=== PATIENT | female | born 1975 | race Caucasian/White ===

== ENCOUNTER 2017-07-11 20:02 | Inpatient (IN) | payer BC ==
[~2017-07-11] VITALS: Ht 180.3 cm; Wt 103.6 kg
[~2017-07-11 20:02] MED LIST: ACET325T9 PO; ALPR1TAB2 PO; HYDR-2678 PO; METR500T PO; NITR100C PO; Nicotine TD; TRAZ-90 PO
[2017-07-11 21:08] LABS: BASO # 0.1 x10^3/uL (0.0-0.2); BASO % 1 % (0-3); EOS # 0.2 x10^3/uL (0.0-0.7); EOS % 2 % (0-3); HEMATOCRIT 39.8 % (36.0-47.0); HEMOGLOBIN 13.4 g/dL (12.0-15.5); LYMPH # 3.2 x10^3/uL (1.0-4.8); LYMPH % 39 % (24-48); MEAN CORPUSCULAR HEMOGLOBIN 34 pg (25-35); MEAN CORPUSCULAR HGB CONC 34 g/dL (31-37); MEAN CORPUSCULAR VOLUME 99 fL (79-100); MONO # 0.6 x10^3/uL (0.0-1.1); MONO % 7 % (0-9); NEUT # 4.2 x10^3uL (1.8-7.7); NEUT % 51 % (31-73); PLATELET COUNT 197 x10^3/uL (140-400); RED BLOOD COUNT 4.01 x10^6/uL (3.50-5.40); RED CELL DISTRIBUTION WIDTH 12.9 % (11.5-14.5); WHITE BLOOD COUNT 8.3 x10^3/uL (4.0-11.0)
[2017-07-11 21:14] LABS: ALBUMIN 2.9 g/dL (3.4-5.0); CALCIUM 7.8 mg/dL (8.5-10.1); CREATININE 1.3 mg/dL (0.6-1.0); GFR 45.1; MAGNESIUM 1.8 mg/dL (1.8-2.4); POTASSIUM 3.8 mmol/L (3.5-5.1); TOTAL BILIRUBIN 0.1 mg/dL (0.2-1.0); TOTAL PROTEIN 5.8 g/dL (6.4-8.2)
[2017-07-11 21:16] LABS: ETHANOL 141 mg/dL (0-10)
[2017-07-11 21:20] LABS: ACETAMIN 10.7 mcg/mL (10-30)
[2017-07-11] MEDS ORDERED: IV NORMAL SALINE 1,000ML 1,000 ML IV ONE (21:30)
[2017-07-11 21:35] LABS: BACTERIA,URINE 0 /HPF (0-FEW); BILIRUBIN,URINE NEG (NEG); CLARITY,URINE CLEAR; COLOR,URINE COLORLESS; GLUCOSE,URINE NEG (NEG); NITRITE,URINE NEG (NEG); RBC,URINE RARE /HPF (0-2); SQUAMOUS EPITHELIAL CELL,UR MANY /LPF; UROBILINOGEN,URINE 0.2 mg/dL (0.2 mg/dL); WBC,URINE RARE /HPF (0-4)
[2017-07-11 21:38] LABS: AMPHETAMINE/METHAMPHETAMINE NEG (NEG); BARBITURATES NEG (NEG); BENZODIAZEPINES POS (NEG); CANNABINOIDS NEG (NEG); COCAINE NEG (NEG); METHADONE NEG (NEG); OPIATES NEG (NEG); PHENCYCLIDINE NEG (NEG)
[2017-07-11 21:39] LABS: U PREG PATIENT NEGATIVE (NEG)
--- NOTE | 2017-07-11 21:59 | EKG ---
[address] [address] Test Date: 2017-07-11 Test Time: 20:19:10 Pat Name: CARLOS KUHN Department: Room: Gender: F Sales Appointment Coordinator: : 1975 Requested By: MIK ACEVES Order Number: [id number] Reading MD: Measurements Intervals [place] Rate: 97 P: 38 MN: 130 QRS: 63 QRSD: 78 T: 17 QT: 372 QTc: 477 Interpretive Statements SINUS RHYTHM INCOMPLETE RIGHT BUNDLE BRANCH BLOCK PROLONGED QT RI6.01 Unconfirmed report No previous ECG available for comparison
[2017-07-11 23:15] VITALS: BP 136/76
--- NOTE | 2017-07-11 23:15 | NUR ---
Grecia Kearns a 42 y/o female was admitted to ICU-2, Dr Hernandez's service, dx overdose (Xanax, trazadone, latuda, paxil), etoh, suicidal ideation. Pt has not been interactive with ER staff at all, will not talk with ER dr or nurses. Tele psych was not able to be completed. Pt was admitted to ICU for monitoring. and will haven psych consult in AM. After EMS brought pt to ICU, pt was awake and was talking a little to me and was tearful. She was not very talkative for admission questionaire to be fully completed. Will monitor pt accordingly to protocols.
--- NOTE | 2017-07-11 23:17 | PHYS DOC ---
Past History Past Medical History: Bipolar, Depression, Renal Disease Past Surgical History: Hysterectomy, Other Alcohol Use: Occasionally Drug Use: Marijuana Adult General Chief Complaint Chief Complaint: OVERDOSE HPI HPI Patient is a 42 year old F who presents with intentional overdose. Grecia's history was limited by clinical condition. She is arousable and states that she took 30-40 trazodone, 3 Xanax, and drank "a lot" of alcohol. She states that she did not take her Lutuda during this episode. Her intent was to kill herself. This is not her first attempt. Review of Systems Review of Systems Constitutional: Denies fever or chills [] Eyes: Denies change in visual acuity, redness, or eye pain [] HENT: Denies nasal congestion or sore throat [] Respiratory: Denies cough or shortness of breath [] Cardiovascular: No additional information not addressed in HPI [] GI: Denies abdominal pain, nausea, vomiting, bloody stools or diarrhea [] : Denies dysuria or hematuria [] Musculoskeletal: Denies back pain or joint pain [] Integument: Denies rash or skin lesions [] Neurologic: Denies headache, focal weakness or sensory changes [] Endocrine: Denies polyuria or polydipsia [] Review of systems was obtained but is limited by her clinical condition Family History Family History Noncontributory Current Medications Current Medications Current Medications Medications (Trade) Dose Ordered Sig/Dustin Start Time Stop Time Status Last Admin Dose Admin Sodium Chloride 1,000 ml @ 1,000 mls/hr 1X ONCE 07/11/17 21:30 07/11/17 22:29 DC 07/11/17 21:15 1,000 MLS/HR Allergies Allergies Allergies Coded Allergies Type Severity Reaction Last Updated Verified No Known Drug Allergies 05/10/15 No Physical Exam Physical Exam Constitutional: Well developed, well nourished, lethargic but arousable to verbal stimuli HENT: Normocephalic, atraumatic, bilateral external ears normal, oropharynx moist, no oral exudates, nose normal. [] Eyes: EOMI, conjunctiva normal, no discharge. [] Neck: Normal range of motion, no tenderness, supple, no stridor. [] Cardiovascular:Heart rate regular rhythm, initially tachycardic Lungs & Thorax: Bilateral breath sounds clear to auscultation [] Abdomen: Bowel sounds normal, soft, no tenderness, no masses, no pulsatile masses. [] Skin: Warm, dry, no erythema, no rash. [] Extremities: no edema. Moves all extremities equally Neurologic: Arousable to verbal stimulus. no focal deficits noted. [] GCS: 12 Eye response: 3 Spontaneously (+4) To verbal command (+3) To pain (+2) No eye opening (+1) Verbal response: 4 Oriented (+5) Confused (+4) Inappropriate words (+3) Incomprehensible sounds (+2) No Verbal response (+1) Motor response: 5 Obeys commands (+6) Localizes pain (+5) Withdrawal from pain (+4) Flexion to pain (+3) Extension to pain (+2) No motor response (+1) Psychologic: Intoxicated Current Patient Data Vital Signs Vital Signs Date Time Temp Pulse Resp B/P (MAP) Pulse Ox O2 Delivery O2 Flow Rate FiO2 07/11/17 22:13 77 16 92 07/11/17 21:00 97.9 07/11/17 20:02 Room Air Lab Results Laboratory Tests Test 07/11/17 20:15 07/11/17 20:42 Urine Collection Type U cath Urine Color Colorless Urine Clarity Clear Urine pH 5.5 Urine Specific Tram <=1.005 Urine Protein Neg (NEG-TRACE) Urine Glucose (UA) Neg mg/dL (NEG) Urine Ketones (Stick) Neg mg/dL (NEG) Urine Blood Small (NEG) Urine Nitrite Neg (NEG) Urine Bilirubin Neg (NEG) Urine Urobilinogen Dipstick 0.2 mg/dL (0.2 mg/dL) Urine Leukocyte Esterase Neg (NEG) Urine RBC Rare /HPF (0-2) Urine WBC Rare /HPF (0-4) Urine Squamous Epithelial Cells Many /LPF Urine Bacteria 0 /HPF (0-FEW) Urine Test Negative (NEG) White Blood Count 8.3 x10^3/uL (4.0-11.0) Red Blood Count 4.01 x10^6/uL (3.50-5.40) Hemoglobin 13.4 g/dL (12.0-15.5) Hematocrit 39.8 % (36.0-47.0) Mean Corpuscular Volume 99 fL (79-100) Mean Corpuscular Hemoglobin 34 pg (25-35) Mean Corpuscular Hemoglobin Concent 34 g/dL (31-37) Red Cell Distribution Width 12.9 % (11.5-14.5) Platelet Count 197 x10^3/uL (140-400) Neutrophils (%) (Auto) 51 % (31-73) Lymphocytes (%) (Auto) 39 % (24-48) Monocytes (%) (Auto) 7 % (0-9) Eosinophils (%) (Auto) 2 % (0-3) Basophils (%) (Auto) 1 % (0-3) Neutrophils # (Auto) 4.2 x10^3uL (1.8-7.7) Lymphocytes # (Auto) 3.2 x10^3/uL (1.0-4.8) Monocytes # (Auto) 0.6 x10^3/uL (0.0-1.1) Eosinophils # (Auto) 0.2 x10^3/uL (0.0-0.7) Basophils # (Auto) 0.1 x10^3/uL (0.0-0.2) Sodium Level 140 mmol/L (136-145) Potassium Level 3.8 mmol/L (3.5-5.1) Chloride Level 107 mmol/L (98-107) Carbon Dioxide Level 24 mmol/L (21-32) Anion Gap 9 (6-14) Blood Urea Nitrogen 11 mg/dL (7-20) Creatinine 1.3 mg/dL (0.6-1.0) H Estimated GFR (Cockcroft-Gault) 45.1 BUN/Creatinine Ratio 8 (6-20) Glucose Level 91 mg/dL (70-99) Calcium Level 7.8 mg/dL (8.5-10.1) L Magnesium Level 1.8 mg/dL (1.8-2.4) Total Bilirubin 0.1 mg/dL (0.2-1.0) L Aspartate Amino Transferase (AST) 15 U/L (15-37) Alanine Aminotransferase (ALT) 17 U/L (14-59) Alkaline Phosphatase 55 U/L (46-116) Total Protein 5.8 g/dL (6.4-8.2) L Albumin 2.9 g/dL (3.4-5.0) L Albumin/Globulin Ratio 1.0 (1.0-1.7) Urine Opiates Screen Neg (NEG) Urine Methadone Screen Neg (NEG) Acetaminophen Level 10.7 mcg/mL (10-30) Acetaminophen Last Dose Date 07/11/17 Acetaminophen Last Dose Time Unknown Urine Barbiturates Neg (NEG) Urine Phencyclidine Screen Neg (NEG) Urine Amphetamine/Methamphetamine Neg (NEG) Urine Benzodiazepines Screen Pos (NEG) Urine Cocaine Screen Neg (NEG) Urine Cannabinoids Screen Neg (NEG) Ethyl Alcohol Level 141 mg/dL (0-10) H Urine Ethyl Alcohol Pos (NEG) EKG EKG Interpreted by emergency department physician Rhythm: Sinus Rate: 114 Ectopy: none ST Segments: No changes T Waves: up right Clinical Impression: sinus tachycardia Course & Med Decision Making Course & Med Decision Making Pertinent Labs and Imaging studies reviewed. (See chart for details) Grecia did receive IV fluids during her stay in the ER. She was monitored closely and transferred to the ICU in stable condition. Dragon Disclaimer Dragon Disclaimer This chart was dictated in whole or in part using Voice Recognition software in a busy, high-work load, and often noisy Emergency Department environment. It may contain unintended and wholly unrecognized errors or omissions. Departure Departure: Impression: Primary Impression: ETOH abuse Additional Impressions: Suicidal overdose Polysubstance overdose Disposition: ADMITTED INPATIENT Condition: GUARDED Referrals: BRENDAN LYONS (PCP) Problem Qualifiers Additional Impressions: Suicidal overdose Encounter type: initial encounter Qualified Codes: T50.902A - Poisoning by unspecified drugs, medicaments and biological substances, intentional self-harm , initial encounter Polysubstance overdose Encounter type: initial encounter Injury intent: intentional self-harm Qualified Codes: T50.902A - Poisoning by unspecified drugs, medicaments and biological substances, intentional self-harm, initial encounter MIK ACEVES MD Jul 11, 2017 23:16
[2017-07-12] VITALS (9 sets, daily range): BP systolic 93–131; BP diastolic 49–74
[2017-07-12] MEDS ORDERED: IV NORMAL SALINE 1,000ML 1,000 ML IV SCH (01:35)
[2017-07-12] MEDS ORDERED: ONDANSETRON PF 4 MG/2 ML VIAL. IV PRN (01:45)
--- NOTE | 2017-07-12 02:15 | NUR ---
poison control, [place] was called to be advised of pt's overdose of trazadone 4 grams and xanax, paxil, latuda and alcohol. Per poison control pt is at high risk for respiratory arrest, bradycardia, torsades, severe hypotension. Poison control requests the following orders: tylenol level to be rechecked now, EKG every 4 hours x3, if QRS >100ms to give sodium bicarb 2-3 amps IVP and recheck EKG 15 mins later; if QTc >500, infuse 1-2 grams Magnesium Sulfate and recheckk EKG 15 mins after infusion. In case of severe hypotension, in spite of IVF, use norepinepipherine drip. [facility] in case they are needed. Poison control will call back later this morning to check status update on patient. If there are any changes in patient or any questions we are to contact them at .
[2017-07-12] MEDS ORDERED: NOREPINEPHRINE BITARTRATE 8 MG in IV NORMAL SALINE 250ML 250 ML IV PRN (03:00)
[2017-07-12] MEDS ORDERED: SODIUM BICARB ADULT 8.4% 50 MEQ/50 ML DISP.SYRIN. IV ONE (03:30)
[2017-07-12] MEDS ORDERED: MAGNESIUM SULFATE 2GM 50 ML IV ONE (03:30)
[2017-07-12 03:58] LABS: ACETAMIN 3.6 mcg/mL (10-30)
[2017-07-12 06:21] LABS: CALCIUM 7.5 mg/dL (8.5-10.1); CREATININE 1.2 mg/dL (0.6-1.0); GFR 49.5; MAGNESIUM 1.8 mg/dL (1.8-2.4); POTASSIUM 4.5 mmol/L (3.5-5.1)
[2017-07-12 06:54] LABS: BASO # 0.1 x10^3/uL (0.0-0.2); BASO % 1 % (0-3); EOS # 0.1 x10^3/uL (0.0-0.7); EOS % 2 % (0-3); HEMATOCRIT 39.3 % (36.0-47.0); HEMOGLOBIN 13.3 g/dL (12.0-15.5); LYMPH # 2.1 x10^3/uL (1.0-4.8); LYMPH % 32 % (24-48); MEAN CORPUSCULAR HEMOGLOBIN 34 pg (25-35); MEAN CORPUSCULAR HGB CONC 34 g/dL (31-37); MEAN CORPUSCULAR VOLUME 100 fL (79-100); MONO # 0.4 x10^3/uL (0.0-1.1); MONO % 7 % (0-9); NEUT # 3.9 x10^3uL (1.8-7.7); NEUT % 59 % (31-73); PLATELET COUNT 196 x10^3/uL (140-400); RED BLOOD COUNT 3.95 x10^6/uL (3.50-5.40); RED CELL DISTRIBUTION WIDTH 12.9 % (11.5-14.5); WHITE BLOOD COUNT 6.6 x10^3/uL (4.0-11.0)
[2017-07-12] MEDS ORDERED: SODIUM BICARB ADULT 8.4% 50 MEQ/50 ML DISP.SYRIN. IV PRN (08:00)
[2017-07-12] MEDS ORDERED: MAGNESIUM SULFATE 2GM 50 ML IV PRN (08:00)
[2017-07-12] MEDS ORDERED: PARO20TA3 PO (08:26)
[2017-07-12] MEDS ORDERED: LURA80TA PO (08:26)
--- NOTE | 2017-07-12 08:31 | NUR ---
Pt assessed and VS per flowsheet. Pt in NSR per monitor. Pt awake this am; currently at bedside with pt. Pt ate a regular breakfast with no complaints of nausea. Pt denies SI this am; when asked if she wanted to pursue treatment of any kind, she shook her head no and stated she needed to find a job. Pt asked to be unhooked to 'go get some fresh air'. Explained to pt that she was 1:1 supervision and I would have to go with her and I could not leave the unit. Also informed pt that she was not allowed to go outside to smoke, that this was a smoke free campus and she was not allowed to leave campus. Pt then asked what she needed to do to be released and when the doctor would be here. Called and spoke with embedded case manager who is coming to unit to speak with pt to go over options. Pt verbalized understanding and agreed to wait and talk with embedded case manager. Will continue to monitor closely.
--- NOTE | 2017-07-12 12:34 | NUR ---
Pt has remained cooperative with cares so far this shift. Screener from [facility] is in with pt now. Pt has voided twice, both times needed min assist to toilet due to weakness and unsteady gait. Pt resting most of the morning. Pt's brought up pt's phone and visited with her for a while. Pt did state after he left that they were getting a divorce. Will continue to monitor.
[2017-07-12] MEDS: LORazepam 1 MG TABLET PO PRN ×2 (15:18→22:18)
[2017-07-12] MEDS: NICOTINE 21MG PATCH. TD SCH (15:18)
--- NOTE | 2017-07-12 16:08 | NUR ---
Pt's came to visit earlier and brought pt's purse. Pt and then attempted to go outside to smoke. Told pt again that she was not allowed to go outside and smoke and if she did I would call security and have her brought back in. Pt then said that she would just smoke in her room. Told pt that she was not allowed to smoke in her room and if she lit the cigarette I would call security; I also asked her to take the senior enlisted advisor from pt and take it home. Pt was very upset, stated she was very anxious and didn't understand what was going on with the transfer process. Explained process to be accepted to [facility] to pt and ; Dr. Hernandez here to see pt and gave order for nicotine patch and lorazepam. Pt verbalized understanding of plan. Pt currently eating a box lunch at this time.
--- NOTE | 2017-07-12 20:25 | NUR ---
Nursing Note At 1899, Dr. España called this nursing station and informed this nurse that this pt had followed him outside after his consultation with this pt. This nurse searched for pt and found pt outside of the old ER entrance smoking a cigarette. This nurse confronted the pt and the pt stated that "she needed a cigarette bad." This nurse and the nursing logging supervisor stood outside with the pt while she put out her cigarette and walked the pt back to her room. At 1999, this nurse was called into pt's room and the pt requested to go outside to smoke another cigarette. This nurse informed the pt that she could not do that, especially that she was unsteady currently and involuntarily held. Pt disagreed and called "someone to take her out to smoke." This nurse called the nursing logging supervisor and after research, there was question whether or not she was involuntarily held. This nurse called Dr. Hernandez at 2019 and asked if she was involuntary hold, Dr. Hernandez could not answer. The nursing logging supervisor then called Linda Rivas RN to confirm whether or not the pt was involuntarily held and this resulted in the pt not being involuntarily held legally, this was just a recommendation. This nurse and the nursing logging supervisor informed the pt of this at 2034 and the pt requested to leave. Informed pt of the risks of leaving, pt still requesting to leave and is currently calling a family member to pick the pt up. Addendum: 07/12/17 at 2121 by CELIA MORA RN Pt informed this nurse that she can not find a ride home, so she will be staying here for the night. Pt tried to bargain multiple times to let this nurse allow her to "take a stroll... (sage cazares) and go smoke a cigarette." This nurse informed the pt that she is not allowed to do that on our property and if she leaves the property we will have to inform security that she has left. Pt physically upset, but agrees that she will stay inside and not smoke on our property. The pt stated that she "will not be placed at any facility that does not allow her to smoke including [facility]." This nurse then called [facility] to check on placement status at 2100, [facility] informed this nurse that she is still being triaged because [facility] has not faxed over all the papers required. This nurse informed [facility] that the pt did not want to placed there and the facility informed this nurse that we should call [facility] to inform them. Will call [facility]. Will CTM the pt closely.
[2017-07-12] MEDS ORDERED: PARoxetine 20 MG TABLET PO SCH (22:00)
[2017-07-12] MEDS ORDERED: LURASIDONE 40 MG TABLET. PO SCH (22:00)
--- NOTE | 2017-07-13 01:01 | ACF ---
Admission Criteria Forms DRUG INGESTION OR OVERDOSE Clinical Indications for Admission to Inpatient Care ( [place]/check or initial the applicable condition/criteria) Admission is indicated for severe toxicity as indicated by 1 or more of the following(1)(2)(3) )(4)(5)(6) I. Hemodynamic instability. II. Dangerous arrhythmia III. Respiratory abnormalities IV. Hypertension requiring inpatient treatment V. Specific finding indicating severe and likely prolonged or drug toxicity [X]. Inpatient admission required rather than observation care (See Drug Ingestion or Overdose: Observation Care guideline as appropriate) because1 or more of the following(9)(10) a) Altered mental status that is severe or persistent b) Clinical finding(e.g., metabolic acidosis, hypoglycemia, bradycardia) that is severe or persistent(11) c) Toxic drug level that is persistent or necessitates ongoing treatment ( e.g. acetaminophen overdose) d) Recurrent seizures [X] e) Psychiatric risk status not acceptable for outpatient management f) Continuous intravenous infusion of anticoagulation, platelet inhibitor, vasoactive,or antiarrhythmic medication(12)(13) g) Other condition, treatment or monitoring requiring inpatient admission Extended stay beyond goal length of stay may be needed for (4) (24) a) Neurologic or respiratory compromise(15)(25) b) Hemodynamic instability c) Persistent toxic drug levels (26) d) Severe drug toxicities or complications(5)(27)(28) e) Ongoing antidote treatment(e.g., acetaminophen overdose) (11)(23)(29)(29)(30) (31) f) Older patient The original [employer] content created by [employer] has been revised. The portions of the content which have been revised are identified through the use of italic text or in bold, and [facility] has neither reviewed nor approved the modified material. All other unmodified content is copyright [employer]. Please see references footnoted in the original [facility] edition 2017 Admission Criteria Met?: Yes MAYURI BARROS Jul 13, 2017 01:01
--- NOTE | 2017-07-13 02:47 | PN ---
DATE: 07/12/2017 SUBJECTIVE: The patient was admitted yesterday with an overdose of trazodone, Xanax and access lots of alcohol to attempt to kill herself. This is not her first attempt and apparently has had multiple stressors in her life including losing her father who committed suicide. She is in the process of divorce. She lost her job and also her house for closure, and basically was admitted. Initial evaluation showed that her toxic screen was positive for benzodiazepine as well as alcohol. Her Tylenol was slightly elevated, although still within therapeutic range. When I saw her today, she was resting slightly propped up in bed, in no apparent respiratory distress; however, she is extremely anxious. According to nursing staff, she wants to smoke, but denied any other complaint. PHYSICAL EXAMINATION: GENERAL: When I examined her, she looked well. There is no pallor, jaundice, cyanosis, or thyromegaly. No jugular venous distension. No lower limb edema. VITAL SIGNS: His heart rate was 86, blood pressure 119/63, temperature was 97, respiratory rate was 21 and oxygen saturation was 95% on room air. The rest of clinical examination is unremarkable, has not really changed. Her intake was 1100, output was 1550. LABORATORY DATA: Showed a white cell count of 6600, hemoglobin 13.3, hematocrit 39, MCV 100, and platelet count of 296,000. Her chemistry showed that her serum sodium 142, potassium 4.5, chloride 110, bicarbonate 25, anion gap of 7, BUN 11, creatinine 1.2, estimated GFR was 49 mL per minute. Her glucose was 84, calcium was 7.5, magnesium was 1.8. ASSESSMENT: Suicidal overdose, polysubstance overdose, depression, bipolar disorder. The patient was [facility] and she accepted at [facility]. We are awaiting for the transfer. JOANN ZARAGOZA MD DR: ALEX/kasey JOB#: [id number] / [id number]
--- NOTE | 2017-07-13 05:19 | HP ---
ADMIT DATE: 07/12/2017 HISTORY OF PRESENT ILLNESS: The patient is a 42-year-old female patient who presented to the Emergency Room with intentional overdose. She apparently took around 30-40 trazodone, three Xanax, and drank a lot of alcohol. She stated that she did not take her Latuda during this episode. Her intent was to kill herself. It is not her first attempt. She stated that she lost her , father, her job, and her house to [facility] in the span of six months. PAST MEDICAL HISTORY: Significant for bipolar disorder, depression. She has also chronic kidney disease. Apparently, she has what seemed to be vesicoureteral reflux disease. PAST SURGICAL HISTORY: Significant for left nephrectomy, abdominal hysterectomy, appendectomy, and cholecystectomy. ALLERGIES: She has no known drug allergies. MEDICATIONS: She is currently on following medications: Tylenol 650 mg every 6 hours, alprazolam 1 mg 4 times a day, lurasidone (Latuda) 80 mg once a day, paroxetine 20 mg daily and trazodone 100 mg at bedtime for sleep. FAMILY HISTORY: Significant for the fact that her father committed suicide about 6 months ago. SOCIAL HISTORY: She is in the process of divorce. She has two daughters and one son. She is a smoker, smokes a pack a day. She normally drinks alcohol and apparently, she lost her job recently. REVIEW OF SYSTEMS: As per history of present illness. PHYSICAL EXAMINATION: GENERAL: On arrival to the Emergency Room, the patient looked well and was clearly in no apparent respiratory distress. No pallor, jaundice, cyanosis or thyromegaly. No jugular venous distension. No lower limb edema. VITAL SIGNS: Her heart rate was 111, blood pressure was 136/76, temperature was 97.3, respiratory rate was 18, and oxygen saturation was 96%. HEENT: Showed normocephalic, atraumatic. NECK: Supple. HEART: Showed normal first and second heart sounds. No gallop, rub or murmur. CHEST: Clear to auscultation. No crepitation or rhonchi. ABDOMEN: Distended, soft and nontender. NEUROLOGIC: She is awake, alert, responding appropriately, although she was somewhat lethargic, intoxicated. Her Sarah coma scale was about 12. LABORATORY DATA: While in the Emergency Room, she has had lab work done, which showed a white cell count of 8300, hemoglobin 13.4, hematocrit 39.8, MCV 99, and platelet count of 197,000 with normal manual differential. Her chemistry showed a serum sodium 140, potassium 3.8, chloride 107, bicarbonate 24, anion gap 9, BUN 11, creatinine 1.3, estimated GFR was 45 mL per minute. Her glucose was 91, calcium was 7.8, magnesium was 1.8. Total bilirubin, AST, ALT, alkaline phosphatase were normal. Her total protein was 5.8, albumin 2.9. Her prothrombin time was 10.2, INR 1, APTT was 21. Urinalysis showed urine was clear, colorless with a pH of 5.5 with specific gravity of 1.005. The urine was negative for protein, glucose, ketones, small amount of blood, negative for nitrite, and leukocyte esterase. There are no rbc's, rare wbc's, and no bacteria. Her urine test was negative. Urine toxic screen was positive for alcohol with a blood alcohol level of 141 mg/dL. She is also positive for benzodiazepine but negative for cannabinoids, cocaine, amphetamine, methamphetamine, phencyclidine, and barbiturate as well as opiate and methadone. Her Tylenol level was 10.7. IMPRESSION: In summary, this is a 42-year-old female patient who was admitted for another suicidal attempt at this time by taking about 30-40 tablets of trazodone, 3 tablets of Xanax, and she drank a lot of alcohol with intent to basically kill herself and this is within the context of multiple stressors including fact that she lost her father who basically committed suicide. Her left her. She lost her job and according to her, she lost her house also to [employer]. The patient is known to have depression and bipolar disorder as well as chronic kidney disease secondary to vesicoureteral reflux. She has had left-sided nephrectomy. Her lab work showed elevated serum creatinine. She has also protein-calorie malnutrition. PLAN: The patient was admitted to the ICU. The screener from the [facility] came and screened her and she has been accepted at ____ waiting her to be transferred there. JOANN ZARAGOZA MD DR: ALEX/kasey JOB#: [id number] / [id number]
[2017-07-13 06:07] LABS: CALCIUM 7.4 mg/dL (8.5-10.1); CREATININE 1.3 mg/dL (0.6-1.0); GFR 45.1
[2017-07-13 06:10] LABS: BASO % 1 % (0-3); EOS # 0.2 x10^3/uL (0.0-0.7); EOS % 2 % (0-3); HEMATOCRIT 39.9 % (36.0-47.0); HEMOGLOBIN 13.2 g/dL (12.0-15.5); LYMPH # 3.1 x10^3/uL (1.0-4.8); LYMPH % 36 % (24-48); MEAN CORPUSCULAR HEMOGLOBIN 33 pg (25-35); MEAN CORPUSCULAR HGB CONC 33 g/dL (31-37); MEAN CORPUSCULAR VOLUME 100 fL (79-100); MONO # 0.6 x10^3/uL (0.0-1.1); MONO % 6 % (0-9); NEUT # 4.8 x10^3uL (1.8-7.7); NEUT % 56 % (31-73); PLATELET COUNT 188 x10^3/uL (140-400); RED BLOOD COUNT 3.99 x10^6/uL (3.50-5.40); WHITE BLOOD COUNT 8.7 x10^3/uL (4.0-11.0)
--- NOTE | 2017-07-13 06:42 | NUR ---
Nursing Note No other events occured during this shift other than event that is noted. Pt rested throughout the night peacefully without any complaints.
[2017-07-13] MEDS: NICOTINE 21MG PATCH. TD SCH (10:49)
[2017-07-13 12:11] VITALS: BP 123/67
--- NOTE | 2017-07-13 12:21 | EKG ---
[address] [address] Test Date: 2017-07-12 Test Time: 01:27:38 Pat Name: CARLOS KUHN Department: Room: [facility]02 1 Gender: F Copy Worker: : 1975 Requested By: JOANN ZARAGOZA Order Number: [id number] Reading MD: Measurements Intervals [place] Rate: P: MO: QRS: QRSD: T: QT: QTc: Interpretive Statements
--- NOTE | 2017-07-13 12:22 | EKG ---
[address] [address] Test Date: 2017-07-12 Test Time: 05:15:55 Pat Name: CARLOS KUHN Department: Room: [facility]02 1 Gender: F Parts Designer: : 1975 Requested By: JOANN ZARAGOZA Order Number: [id number] Reading MD: Measurements Intervals [place] Rate: P: [place]: QRS: QRSD: T: QT: QTc: Interpretive Statements
--- NOTE | 2017-07-13 12:27 | EKG ---
[facility] [address] [place] [address] Test Date: 2017-07-12 Test Time: 08:46:15 Pat Name: CARLOS KUHN Department: Room: [facility]02 1 Gender: F Circulation Clerk: : 1975 Requested By: JOANN ZARAGOZA Order Number: [id number] Reading MD: Measurements Intervals [place] Rate: P: NM: QRS: QRSD: T: QT: QTc: Interpretive Statements
[2017-07-13] MEDS: LORazepam 1 MG TABLET PO PRN (12:42)
--- NOTE | 2017-07-13 14:16 | CONS ---
DATE OF CONSULTATION: 07/12/2017 This is a late entry for 07/12/2017. The patient was seen for this evaluation on the evening of 07/12/2017. IDENTIFYING DATA: The patient is a 42-year-old female seen in bed ____ [facility] for a psychiatric consult requested by Dr. Hernandez on account of the patient's admission following overdose on trazodone, Xanax, Paxil, Latuda and alcohol. The patient had made suicidal statements and then attempted the overdose to end her life. Reportedly, she had been postings ____ on social media for about 1 week regarding her suicidal ideation. She has had significant stressors recently including separation from her , lost of employment, of her father, all within the past 1 year, complicating her bipolar disorder symptoms, which have been worsening. CHIEF COMPLAINT: "I have been going to [facility] for treatment of my bipolar disorder. I have been seeing Inocencia. I have been through a lot of stress. I have been crying. I thought I would be better of ." HISTORY OF PRESENT ILLNESS: The patient has a long history of bipolar disorder. Recently, stressors have been insignificant including the of her father, separation from her , losing her job and her home. She presented to the Emergency Room with an intentional overdose after taking about 30-40 trazodone, 3 Xanax, and excessive amount of alcohol. Reportedly, she had taken Latuda, but this is not confirmed. She states her intent was to kill herself and this is not her first attempt. She has had sleep and appetite changes. She does have a long history of bipolar disorder diagnosed when she was 19 years old and most recently treated at the [facility]. The patient was screened by the screeners from the [facility] and apparently arrangements have been made for her transfer to [facility] for psychiatric stabilization. PAST PSYCHIATRIC HISTORY: As noted above. PAST MEDICAL HISTORY: Chronic kidney disease, vesicoureteral reflux disease. PAST SURGICAL HISTORY: Positive for left nephrectomy, abdominal hysterectomy, appendectomy, cholecystectomy. DRUG ALLERGIES: Negative. CURRENT PSYCHOTROPICS AT THE TIME OF ADMISSION: Tylenol 650 q.6 hours p.r.n., Xanax 1 mg 4 times a day, Latuda 80 mg once a day, paroxetine 20 mg a day, and trazodone 100 mg at bedtime. FAMILY HISTORY: Father committed suicide about 6 months ago. SOCIAL HISTORY: The patient is from her of 13 years. She has 1 biological child from this relationship who was 12-year-old daughter and has a 17-year-old daughter and a 21-year-old son. She is a smoker, smokes a pack a day. 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 REVIEW OF SYSTEMS: Positive for some tiredness, anxiety, restlessness, racing thoughts. She is quite tearful, sad, depressed as I met with her. Denied active suicidal ideation, however. MENTAL STATUS EXAMINATION: VITAL SIGNS: Pulse 86, respirations 21, BP 119/63, O2 sats 95% on room air. The patient is reasonably oriented. I met with her in her room in the evening of 07/12/2017. She is depressed, tearful, well oriented, gave me a very reliable history. She said when she attempted suicide, she thought everyone would be better off without her. Denies active suicidal ideation. Speech is coherent. Thought processes goal directed. Mood and affect are depressed and affect is mood congruent. Attention span short. Language function intact. No homicidal ideation. No clear psychotic symptoms. LABORATORY DATA: Reviewed. IMPRESSION: Bipolar 1 disorder, mixed with significant suicide attempt; anxiety disorder, unspecified; history of alcohol abuse; impulse control disorder, unspecified. Rest as above. PLAN: I have carefully reviewed the patient's past psychiatric history, it appears she has never been treated on lithium, even though she has had a confirmed diagnosis of bipolar disorder since she was 19 years old. Reportedly, she had been transferred to the [facility] and decision on appropriate psychotropic medication intervention will be made as part of that evaluation. For the time being, we maintained her on her current psychotropics, observe her closely per nursing staff. Increase the Latuda to 100 mg at night and defer the addition of a mood stabilizer to when she is transferred to [facility]. Dr. Hernandez, thank you for the opportunity to participate in your patient's care. We will follow with you. RONI HAMMOND MD DR: REESE/kasey JOB#: [id number] / [id number]
--- NOTE | 2017-07-13 15:01 | NUR ---
Transfer to [facility] via cart accompanied by emt staff. Alert and oriented, no c/o pain or distress, vs stable. Pt voices need for help. Sl dc'ed, tolerated procedure well. Report called to Roberth at [facility], verbalized understanding.
[2017-07-13] MEDS ORDERED: LURASIDONE 40 MG TABLET. PO SCH ×2 (21:00)
[2017-07-13] MEDS ORDERED: PARoxetine 20 MG TABLET PO SCH (21:00)
--- NOTE | 2017-07-14 03:10 | PN ---
DATE: 07/13/2017 SUBJECTIVE: The patient is resting, slightly propped up in bed, no apparent distress. Awake, alert, denied any complaint except that she wants to smoke and she has had a Nicoderm patch. PHYSICAL EXAMINATION: GENERAL: When I examined her, she looked well and was clearly in no apparent respiratory distress. No pallor, jaundice, cyanosis, or thyromegaly. No jugular venous distension. No lower limb edema. VITAL SIGNS: Her heart rate was 85, blood pressure 123/67, temperature was 98.4, respiratory rate was 14, and oxygen saturation was 97%. The rest of clinical exam is unremarkable, has not really changed. Her intake over the last 24 hours was 1100, output was 1550. LABORATORY DATA: Her lab work this morning showed a white cell count of 8700, hemoglobin 13, hematocrit 39, MCV 100, and platelet count of 188,000. Serum sodium was 139, potassium 4, chloride 107, bicarbonate 26, anion gap of 6, BUN 13, creatinine 1.3, estimated GFR was 45 mL per minute. Her glucose was 99. Calcium was 7.4. ASSESSMENT AND PLAN: Suicidal overdose, polysubstance overdose, depression, bipolar disorder, apparently without the court order, patient cannot be transferred to ____ [facility]. We are contacting other inpatient psychiatric clinic to be discharged there if accepted. JOANN ZARAGOZA MD DR: ALEX/kasey JOB#: [id number] / [id number]
== END 2017-07-13 15:01 | DRG 918 ==
LOC: ER 20:02 → ICU 21:35 → 1 SOUTH 07-12 16:28
PROVIDERS: ADMIT Internal Medicine; ATTEND Internal Medicine
DX: T43.212A Poisoning by selective serotonin and norepinephrine reuptake inhibitors, intentional self-harm, initial encounter (principal); E46 Unspecified protein-calorie malnutrition; F31.60 Bipolar disorder, current episode mixed, unspecified; N13.70 Vesicoureteral-reflux, unspecified; F10.10 Alcohol abuse, uncomplicated; F17.210 Nicotine dependence, cigarettes, uncomplicated; F41.9 Anxiety disorder, unspecified; N18.9 Chronic kidney disease, unspecified; F63.9 Impulse disorder, unspecified; F12.90 Cannabis use, unspecified, uncomplicated; Z90.710 Acquired absence of both cervix and uterus; Z90.49 Acquired absence of other specified parts of digestive tract; Z90.5 Acquired absence of kidney; Z79.899 Other long term (current) drug therapy; Z68.31 Body mass index [BMI] 31.0-31.9, adult; Z56.0 Unemployment, unspecified; Y92.89 Other specified places as the place of occurrence of the external cause
CPT/HCPCS: 36415; 80048; 80053; 80307; 81001; 81025; 83735; 85025; 85610; 85730; 87641; 93005; 96360; 96361; G0480; J2405; 99285-25; G0479; J7030

== ENCOUNTER 2017-12-22 19:49 | Inpatient (IN) | payer BC ==
[~2017-12-22] VITALS: Ht 180.3 cm; Wt 103.4 kg
[~2017-12-22 19:49] MED LIST changes: +LURA80TA PO; +PARO20TA3 PO
--- NOTE | 2017-12-22 19:51 | ED.ADGEN ---
Past History Past Medical History: Bipolar, Depression, Renal Disease Past Surgical History: Hysterectomy, Other Alcohol Use: Occasionally Drug Use: Marijuana Adult General Chief Complaint Chief Complaint " I was trying to kill my self... I took all my Xanax at home ... it was about a handful.. and cut my right wrist... I did not want to mess up my tattoo on the Lt wrist..... I just don't want to live anymore" " I was on the parking lot when I cut my wrist.. because I did not want anyone to find me right away .. or find me at home.. I cut my wrist about hour ago... but I didn't bleed out.. and I got really cold...my arm hurt too bad.. and I guess started having second thoughts.... so I came in... " HPI HPI Patient is a 42 year old female who presents with above hx and complaints depression, suicidal ideation, and 8 cm laceration to right wrist. Patient has a past history of depression, and her depression recently exacerbated by loss of custody of her children secondary chronic alcohol abuse, loss of home, and loss of part-time job. Pt. has hx chronic alcohol abuse and some remote hx of alcohol withdrawal seizure. Pt. has been taking low dose Paxil and Xanax by her primary. Pt. has previous suicide attempt with drug over dose . Pt. cut her wrist on parking lot because she felt she would not be discovered until she bled out. Pt. has deep 8 cm laceration that does whitney a flexor tendon. No demonstrable function loss or neuro deficits. Wound did begin to bleed actively during irrigation, ROM and sensory checks. Pt. Does not remember her last Tetanus. Review of Systems Review of Systems Pt. somewhat poor historian. Constitutional: Denies fever or chills [] Eyes: Denies change in visual acuity, redness, or eye pain [] HENT: Denies nasal congestion or sore throat [] Respiratory: Denies cough or shortness of breath [] Cardiovascular: No additional information not addressed in HPI [] GI: Denies abdominal pain, nausea, vomiting, bloody stools or diarrhea [] : Denies dysuria or hematuria [] Musculoskeletal: Denies back pain or joint pain [] Integument: Denies rash or skin lesions [] Neurologic: Denies headache, focal weakness or sensory changes [] Endocrine: Denies polyuria or polydipsia [] All other systems were reviewed and found to be within normal limits, except as documented in this note. Family History Family History Non-contributory Current Medications Current Medications Current Medications Medications (Trade) Dose Ordered Sig/Dustin Start Time Stop Time Status Last Admin Dose Admin Bupivacaine HCl (Sensorcaine Mpf 0.5%) 30 ml 1X ONCE 12/22/17 20:45 12/22/17 20:46 DC Ceftriaxone Sodium 1 gm/ Sodium Chloride 50 ml @ 100 mls/hr 1X ONCE 12/22/17 21:45 12/22/17 22:14 DC 12/22/17 23:05 100 MLS/HR Ceftriaxone Sodium (Rocephin) 1 gm STK-MED ONCE 12/22/17 22:48 12/22/17 22:49 DC Diphtheria/ Tetanus/Acell Pertussis (Boostrix) 0.5 ml ONCE ONCE 12/22/17 21:00 12/22/17 21:01 DC 12/22/17 21:01 0.5 ML Lidocaine HCl 20 ml 1X ONCE 12/22/17 20:45 12/22/17 20:46 DC Magnesium Hydroxide (Milk Of Magnesia) 2,400 mg 1X ONCE 12/22/17 21:45 12/22/17 21:46 DC 12/22/17 23:04 2,400 MG Potassium Chloride (KCl Oral Soln) 40 meq 1X ONCE 12/22/17 21:45 12/22/17 21:46 DC 12/22/17 23:04 40 MEQ Sodium Bicarbonate 50 meq 1X ONCE 12/22/17 20:45 12/22/17 20:46 DC 12/22/17 21:00 50 MEQ Sodium Chloride 50 ml @ As Directed STK-MED ONCE 12/22/17 22:48 12/22/17 22:49 DC See Nursing for home meds. Allergies Allergies Allergies Coded Allergies Type Severity Reaction Last Updated Verified No Known Drug Allergies 05/10/15 No Physical Exam Physical Exam Constitutional: in acute emotional distress, depressed, HENT: Normocephalic, atraumatic, bilateral external ears normal, oropharynx moist, no oral exudates, nose normal. [] Eyes: PERRLA, EOMI, conjunctiva normal, no discharge. [] Neck: Normal range of motion, no tenderness, supple, no stridor. [] Cardiovascular:Heart rate regular rhythm, no murmur [] Lungs & Thorax: Bilateral breath sounds equal with scattered wheezes on auscultation [] Abdomen: Bowel sounds normal, soft, no tenderness, no masses, no pulsatile masses. Old surgery scars. Skin: Warm, dry, no erythema, no rash. Laceration as per HPI. Back: No tenderness, no CVA tenderness. [] Extremities: No tenderness, no cyanosis, no clubbing, ROM intact, no edema. [] Neurologic: Alert and oriented X 3, normal motor function, normal sensory function, no gross focal deficits noted. [] Psychologic: Affect flat, judgement poor insight, mood depressed. Expressed suicidal ideation and desire to find a better way to kill herself. Current Patient Data Vital Signs Vital Signs Date Time Temp Pulse Resp B/P (MAP) Pulse Ox O2 Delivery O2 Flow Rate FiO2 12/22/17 19:50 97.9 92 18 99 Room Air Lab Results Laboratory Tests Test 12/22/17 20:09 12/22/17 21:23 White Blood Count 8.3 x10^3/uL (4.0-11.0) Red Blood Count 4.59 x10^6/uL (3.50-5.40) Hemoglobin 14.9 g/dL (12.0-15.5) Hematocrit 43.7 % (36.0-47.0) Mean Corpuscular Volume 95 fL (79-100) Mean Corpuscular Hemoglobin 33 pg (25-35) Mean Corpuscular Hemoglobin Concent 34 g/dL (31-37) Red Cell Distribution Width 13.2 % (11.5-14.5) Platelet Count 245 x10^3/uL (140-400) Neutrophils (%) (Auto) 63 % (31-73) Lymphocytes (%) (Auto) 26 % (24-48) Monocytes (%) (Auto) 9 % (0-9) Eosinophils (%) (Auto) 2 % (0-3) Basophils (%) (Auto) 0 % (0-3) Neutrophils # (Auto) 5.3 x10^3uL (1.8-7.7) Lymphocytes # (Auto) 2.2 x10^3/uL (1.0-4.8) Monocytes # (Auto) 0.7 x10^3/uL (0.0-1.1) Eosinophils # (Auto) 0.1 x10^3/uL (0.0-0.7) Basophils # (Auto) 0.0 x10^3/uL (0.0-0.2) Prothrombin Time 10.2 SEC (9.4-11.4) Prothrombin Time INR 1.0 (0.9-1.1) PTT 23 SEC (23-33) Sodium Level 141 mmol/L (136-145) Potassium Level 3.3 mmol/L (3.5-5.1) L Chloride Level 104 mmol/L (98-107) Carbon Dioxide Level 27 mmol/L (21-32) Anion Gap 10 (6-14) Blood Urea Nitrogen 11 mg/dL (7-20) Creatinine 1.2 mg/dL (0.6-1.0) H Estimated GFR (Cockcroft-Gault) 49.5 Glucose Level 90 mg/dL (70-99) Calcium Level 8.9 mg/dL (8.5-10.1) Magnesium Level 1.7 mg/dL (1.8-2.4) L Total Bilirubin 0.2 mg/dL (0.2-1.0) Direct Bilirubin 0.1 mg/dL (0.0-0.2) Aspartate Amino Transferase (AST) 18 U/L (15-37) Alanine Aminotransferase (ALT) 16 U/L (14-59) Alkaline Phosphatase 52 U/L (46-116) Total Protein 7.2 g/dL (6.4-8.2) Albumin 3.6 g/dL (3.4-5.0) Salicylates Level 3.4 mg/dL (2.8-20.0) Salicylate Last Dose Date Unknown Salicylate Last Dose Time Unknown Urine Opiates Screen Neg (NEG) Urine Methadone Screen Neg (NEG) Acetaminophen Level < 2.0 mcg/mL (10-30) L Acetaminophen Last Dose Date Unknown Acetaminophen Last Dose Time Unknown Urine Barbiturates Neg (NEG) Urine Phencyclidine Screen Neg (NEG) Urine Amphetamine/Methamphetamine Neg (NEG) Urine Benzodiazepines Screen Pos (NEG) Urine Cocaine Screen Neg (NEG) Urine Cannabinoids Screen Neg (NEG) Ethyl Alcohol Level < 10 mg/dL (0-10) Urine Ethyl Alcohol Neg (NEG) Urine Collection Type Unknown Urine Color Yellow Urine Clarity Hazy Urine pH 5.5 Urine Specific [place] 1.015 Urine Protein Neg (NEG-TRACE) Urine Glucose (UA) Neg mg/dL (NEG) Urine Ketones (Stick) Neg mg/dL (NEG) Urine Blood Small (NEG) Urine Nitrite Neg (NEG) Urine Bilirubin Neg (NEG) Urine Urobilinogen Dipstick 0.2 mg/dL (0.2 mg/dL) Urine Leukocyte Esterase Trace (NEG) Urine RBC 3-5 /HPF (0-2) Urine WBC 1-4 /HPF (0-4) Urine Squamous Epithelial Cells Many /LPF Urine Bacteria Few /HPF (0-FEW) Urine Hyaline Casts Few /HPF Urine Mucus Slight /LPF EKG EKG My interpretation EKG shows a sinus rhythm at 82 bpm. Some nonspecific contour abnormalities in anterior lateral leads. No findings acute STEMI with contralateral changes.[] Radiology/Procedures Radiology/Procedures My interpretation of chest x-ray shows no acute cardiopulmonary findings.[] Course & Med Decision Making Course & Med Decision Making Pertinent Labs and Imaging studies reviewed. (See chart for details) Procedure Note: Laceration repair. - Wound irrigated. Injected edges of wound with lidocaine and Sensorcaine. Wound reirrigated and range of motion. Obvious whitney of one flexor tendon, but no demonstrated function loss appreciate. Sensation appeared to be intact distal. No internal latest with 4 -0 Vicryl to control bleeding and approximate wound edge. 3 external Prolene 4 -0 sutures placed to approximate wound edges. 9 carol also placed to close the wound. Dressing applied. Pt. instructed may need additional repair. Polysporin 4 x day. Carol / Prolene sutures out in 10 days. Keflex 500 tid x 7 days. Tele. psych - Dr. Meyer - recommend 8-12 med. admit for OD and Withdrawal. Give Klonopin 1.0 every 8 hrs. . Admit in pt. psych. after clearing OD status. See Tele Psych Report. Discussed presentation, testing and tx. plan with Dr. Chavez admit until clearing of possible drug OD. Monitor for ETOH with withdrawal symptoms. After 12 hours may be referred to inpatient psych unit. CC = 90 min. [] Final Impression Final Impression 1. Suicidal ideation 2. Suicidal attempt- Self cutting and Drug Over Dose 3. Right wrist laceration[] 8 cm 4. Acute depressive episode on chronic depression 5. Hypokalemia 6. Elevated creatinine 7. Hypo-magnesium 8. Hx. of Chronic Alcohol Abuse Problems: Pool Disclaimer Pool Disclaimer This electronic medical record was generated, in whole or in part, using a voice recognition dictation system. AGUSTIN WILEY MD Dec 22, 2017 19:51
[2017-12-22] MEDS ORDERED: IV NORMAL SALINE 1,000ML 1,000 ML IV SCH (20:30)
[2017-12-22 20:43] LABS: BASO % 0 % (0-3); EOS # 0.1 x10^3/uL (0.0-0.7); EOS % 2 % (0-3); HEMATOCRIT 43.7 % (36.0-47.0); HEMOGLOBIN 14.9 g/dL (12.0-15.5); LYMPH # 2.2 x10^3/uL (1.0-4.8); LYMPH % 26 % (24-48); MEAN CORPUSCULAR HEMOGLOBIN 33 pg (25-35); MEAN CORPUSCULAR HGB CONC 34 g/dL (31-37); MEAN CORPUSCULAR VOLUME 95 fL (79-100); MONO # 0.7 x10^3/uL (0.0-1.1); MONO % 9 % (0-9); NEUT # 5.3 x10^3uL (1.8-7.7); NEUT % 63 % (31-73); PLATELET COUNT 245 x10^3/uL (140-400); RED BLOOD COUNT 4.59 x10^6/uL (3.50-5.40); RED CELL DISTRIBUTION WIDTH 13.2 % (11.5-14.5); WHITE BLOOD COUNT 8.3 x10^3/uL (4.0-11.0)
[2017-12-22] MEDS ORDERED: BUPIVACAINE MPF 0.5% 30 ML VIAL. SQ ONE (20:45)
[2017-12-22] MEDS ORDERED: SODIUM BICARB ADULT 8.4% 50 MEQ/50 ML DISP.SYRIN. IV ONE (20:45)
[2017-12-22] MEDS ORDERED: LIDOCAINE 2% 20 ML VIAL. IJ ONE (20:45)
[2017-12-22 20:49] LABS: ACETAMIN < 2.0 mcg/mL (10-30); ETHANOL < 10 mg/dL (0-10); SALIC 3.4 mg/dL (2.8-20.0)
[2017-12-22 20:50] LABS: ALBUMIN 3.6 g/dL (3.4-5.0); CALCIUM 8.9 mg/dL (8.5-10.1); CREATININE 1.2 mg/dL (0.6-1.0); DIRECT BILIRUBIN 0.1 mg/dL (0.0-0.2); GFR 49.5; MAGNESIUM 1.7 mg/dL (1.8-2.4); POTASSIUM 3.3 mmol/L (3.5-5.1); TOTAL BILIRUBIN 0.2 mg/dL (0.2-1.0); TOTAL PROTEIN 7.2 g/dL (6.4-8.2)
[2017-12-22] MEDS ORDERED: DIPHTH,PERTUSS(ACELL),TET TOX 0.5 ML DISP.SYRIN. VAX IM ONE (21:00)
[2017-12-22] MEDS ORDERED: MAGNESIUM HYDROXIDE 2,400 MG/30 ML ORAL.SUSP. PO ONE (21:45)
[2017-12-22] MEDS ORDERED: POTASSIUM CHLORIDE 20 MEQ/15 ML ORAL LIQUID. PO ONE (21:45)
[2017-12-22 22:04] LABS: BARBITURATES NEG (NEG); BENZODIAZEPINES POS (NEG); CANNABINOIDS NEG (NEG); COCAINE NEG (NEG); METHADONE NEG (NEG); OPIATES NEG (NEG); PHENCYCLIDINE NEG (NEG)
[2017-12-22 22:06] LABS: AMPHETAMINE/METHAMPHETAMINE NEG (NEG)
[2017-12-22 22:39] LABS: BILIRUBIN,URINE NEG (NEG); CLARITY,URINE HAZY; COLOR,URINE YELLOW; GLUCOSE,URINE NEG (NEG)
[2017-12-22 22:40] LABS: BACTERIA,URINE FEW /HPF (0-FEW); NITRITE,URINE NEG (NEG); SQUAMOUS EPITHELIAL CELL,UR MANY /LPF; UROBILINOGEN,URINE 0.2 mg/dL (0.2 mg/dL)
[2017-12-22 22:42] LABS: HYALINE CASTS, URINE FEW /HPF
[2017-12-22] MEDS ORDERED: IV NORMAL SALINE 50ML 50 ML ONE (22:48)
[2017-12-22] MEDS ORDERED: cefTRIAXone SODIUM 1 GM VIAL IV ONE (22:48)
[2017-12-22] MEDS ORDERED: LORazepam 2 MG/ML VIAL IV PRN (23:30)
--- NOTE | 2017-12-23 01:24 | EKG ---
[address] [address] Test Date: 2017-12-22 Test Time: 21:34:50 Pat Name: CARLOS KUHN Department: Room: ICU02 1 Gender: F Pipeline Welder: CHARO : 1975 Requested By: AGUSTIN WILEY Order Number: [id number] Reading MD: Serg Valdez MD Measurements Intervals [place] Rate: 82 P: 39 TX: 132 QRS: 60 QRSD: 84 T: 47 QT: 362 QTc: 426 Interpretive Statements SINUS RHYTHM Electronically Signed On 12-26-2017 10:58:48 ELECTRICAL SYSTEM SPECIALIST by Serg Valdez MD
[2017-12-23 02:28] VITALS: BP 132/79
[2017-12-23] MEDS ORDERED: NAPR500T4 PO (02:39)
[2017-12-23] MEDS ORDERED: PARO40TA3 PO (02:39)
[2017-12-23] MEDS ORDERED: FURO20TA3 PO (02:39)
[2017-12-23 06:13] VITALS: BP 95/58
[2017-12-23 06:58] LABS: CALCIUM 8.4 mg/dL (8.5-10.1); GFR 61.1; POTASSIUM 4.3 mmol/L (3.5-5.1)
[2017-12-23 07:01] LABS: BASO # 0.1 x10^3/uL (0.0-0.2); BASO % 1 % (0-3); EOS # 0.1 x10^3/uL (0.0-0.7); EOS % 1 % (0-3); HEMATOCRIT 39.5 % (36.0-47.0); HEMOGLOBIN 13.4 g/dL (12.0-15.5); LYMPH # 2.9 x10^3/uL (1.0-4.8); LYMPH % 28 % (24-48); MEAN CORPUSCULAR HEMOGLOBIN 33 pg (25-35); MEAN CORPUSCULAR HGB CONC 34 g/dL (31-37); MEAN CORPUSCULAR VOLUME 96 fL (79-100); MONO # 0.7 x10^3/uL (0.0-1.1); MONO % 7 % (0-9); NEUT # 6.5 x10^3uL (1.8-7.7); NEUT % 63 % (31-73); PLATELET COUNT 220 x10^3/uL (140-400); RED BLOOD COUNT 4.13 x10^6/uL (3.50-5.40); RED CELL DISTRIBUTION WIDTH 13.1 % (11.5-14.5); WHITE BLOOD COUNT 10.4 x10^3/uL (4.0-11.0)
[2017-12-23] MEDS: IV RINGERS SOLUTION,LACTATED 1,000 ML IV SCH ×2 (07:37→12:01)
[2017-12-23] MEDS ORDERED: ACETAMINOPHEN 500 MG TABLET PO ONE (07:45)
[2017-12-23] MEDS ORDERED: ACETAMINOPHEN 325 MG TABLET PO PRN (07:45)
--- NOTE | 2017-12-23 07:45 | RAD ---
Portable chest, 12/22/2017: History: Overdose Comparison is made to a study from 01/28/2017. The heart size and pulmonary vascularity are normal. The lungs are clear. There is no evidence of pleural fluid. IMPRESSION: No acute cardiopulmonary abnormality is detected.
[2017-12-23 08:16] VITALS: BP 129/67
[2017-12-23] MEDS: clonazePAM 1 MG TABLET PO SCH ×2 (08:21→14:13)
[2017-12-23] MEDS ORDERED: LACTOBACILLUS RHAMNOSUS GG 1 CAPSULE. PO SCH (09:00)
[2017-12-23] MEDS ORDERED: NICOTINE 21MG PATCH. TD SCH (09:00)
[2017-12-23] MEDS ORDERED: MVI, ADULT NO.4 WITH VIT K 10 ML, FOLIC ACID 1 MG, THIAMINE 100 MG in IV DEXTROSE 5%-LA... IV SCH ×4 (09:00)
[2017-12-23 10:07] VITALS: BP 125/66
[2017-12-23] MEDS: HYDROcodone/APAP 5/325MG 1 TAB TABLET PO PRN ×2 (10:09→14:13)
[2017-12-23] MEDS: CEPHALEXIN 250 MG CAPSULE PO SCH ×2 (10:09→14:13)
[2017-12-23] MEDS ORDERED: ENOXAPARIN 40 MG/0.4 ML DISP.SYRIN. SQ SCH (12:30)
[2017-12-23 14:43] VITALS: BP 109/61
--- NOTE | 2017-12-23 15:59 | HP ---
ADMIT DATE: 12/23/2017 HISTORY OF PRESENT ILLNESS: The patient is a 42-year-old female patient, who came to the Emergency Room complaining that she was trying to kill herself. She took all her Xanax at home, it was about handful and cut her right wrist. She stated she does not want to live anymore. She was on the parking lot when she cut her wrist. She had history of depression and complaint of suicidal ideation. She has about 8 cm laceration to the right wrist. She apparently had history of depression. Her depression has recently exacerbated by loss of their custody of her children secondary to chronic alcohol abuse, loss of home and loss of department sales manager job. Apparently had history of alcohol abuse and some remote history of alcohol withdrawal seizures. She has been taking small dose of Paxil and Xanax by her primary care physician and apparently has had previous episodes of suicidal attempts with drug overdose. She apparently cut her wrist at the parking lot because she felt she would not be discovered until she bled out. She has a deep 8 cm laceration that does neck her flexor tendon. No demonstrable; however, function loss or neurological deficit, wound begin to bleed actively during irrigation; however, range of movement were normal. The laceration was sutured and the patient was admitted with suicidal ideation, suicidal attempt, right wrist laceration and acute depressive episode on chronic depression. She was also found to have hypokalemia and hypomagnesemia. She was admitted to ICU, was started on Klonopin 1 mg every 8 hours. The telepsych physician recommend to admit the patient for overdose and withdrawal and to monitor for alcohol withdrawal symptoms and to consult Dr. España. PAST MEDICAL HISTORY: Significant for bipolar disorder, depression. She has also chronic kidney disease. Apparently, she has what seemed to be vesicoureteral reflux disease. PAST SURGICAL HISTORY: Significant for left nephrectomy, abdominal hysterectomy, appendectomy and cholecystectomy. ALLERGIES: She has no known drug allergies. MEDICATIONS: She is currently on following medications: Tylenol 650 mg every 6 hours, alprazolam 1 mg 4 times a day, furosemide 20 mg once a day, Latuda 80 mg once a day, naproxen 500 mg daily, paroxetine total of 60 mg once a day, and trazodone 100 mg at bedtime. FAMILY HISTORY: Significant for the fact that her father committed suicide about a year and half ago. SOCIAL HISTORY: She apparently is . She has two daughters and one son. She is a smoker, smokes a pack a day. She stated that she has not drink alcohol anymore. She has quit her job at [employer]. REVIEW OF SYSTEMS: As per history of present illness. PHYSICAL EXAMINATION: GENERAL: On arrival to the Emergency Room, she looked well and was clearly in no apparent respiratory distress, no pallor, jaundice, cyanosis, or thyromegaly. No jugular venous distension. No lower limb edema. VITAL SIGNS: Her heart rate was 92, blood pressure was 132/79, temperature was 97.9, respiratory rate was 18 and oxygen saturation was 99%. HEAD, EYES, EARS, NOSE AND THROAT: Showed normocephalic, atraumatic. NECK: Supple. HEART: Showed normal first and second heart sounds with no gallop, rub or murmur. CHEST: Clear to auscultation. No crepitation or rhonchi. ABDOMEN: Distended, soft, nontender. No guarding or rigidity. No organomegaly. All hernial orifice intact. Bowel sounds normal. NEUROLOGIC: She is awake, alert, responding appropriately. Cranial nerves intact. She moves extremities without difficulty. She apparently has an 8 cm laceration of the right wrist, actively bleeding during irrigation. She apparently necked the flexor tendon, but no demonstrable loss of functional loss. No neurological deficit. The laceration was sutured by the ER physician. LABORATORY DATA: While in the Emergency Room she had lab work done, which showed white cell count of 8300, hemoglobin 14.9, hematocrit 44, MCV 95 and platelet count 245,000 with normal manual differential. Her prothrombin time was 10.2, INR 1, APTT was 23. Her chemistry showed a serum sodium 141, potassium 3.3, chloride 104, bicarbonate 27, anion gap of 10, BUN 11, creatinine 1.2, estimated GFR was 49 mL per minute. Her magnesium was 1.7. Total bilirubin, AST, ALT, alkaline phosphatase were normal. Total protein was 7.2, albumin 3.6. Urinalysis was essentially unremarkable and urine toxicology screen was positive for benzodiazepine, negative for opiates, methadone, barbiturates, phencyclidine, amphetamine, methamphetamine, alcohol, cannabinoids. She apparently has had an EKG done, which showed that she was in sinus rhythm at 82 beats per minute, some nonspecific ST-T changes. No finding consistent with acute ST segment elevation. Chest x-ray showed no acute cardiopulmonary finding. The patient has laceration repaired and the Telepsych was contacted that recommended admission for overdose and withdrawal and was given Klonopin 1 mg every 8 hours. ASSESSMENT AND PLAN: Continue with alcohol withdrawal protocol. Continue with Lortab 5/325 for pain management, cephalexin for possible skin infection, banana bag and clonazepam. We will consult Dr. España for evaluation and possible inpatient psychiatric treatment, although the patient herself is refusing to do that. JOANN ZARAGOZA MD DR: ALEX/kasey JOB#: [id number] / [id number]
--- NOTE | 2017-12-23 16:04 | PN ---
DATE: 12/23/2017 SUBJECTIVE: The patient is resting, slightly propped up in bed, and in no apparent distress. She did complain of pain in her right wrist, for which we started her on hydrocodone/APAP 5/325 one tablet every 4 hours. Other than that, she denied any other complaint. She is refusing to go for inpatient psychiatric stabilization. She said that she will lose her job that she just got recently at [employer]. PHYSICAL EXAMINATION: GENERAL: On examining her, she looked well and was clearly in no apparent respiratory distress, pale, and no pallor, jaundice, cyanosis or thyromegaly. No jugular venous distension. No limb edema. VITAL SIGNS: Her heart rate was 78, blood pressure was 129/67, temperature was 98.5, respiratory rate was 18, and oxygen saturation was 98%. The rest of clinical examination is unremarkable, has not really changed. Her intake was 1050, output was 400. LABORATORY DATA: Her lab work showed her white cell count is 10,400, hemoglobin 13, hematocrit 39, MCV 96, and platelet count of 220,000. Her chemistry showed serum sodium was 141, potassium 4.3, chloride 108, bicarbonate 26, anion gap of 7, BUN 11, creatinine 1, estimated GFR was 61 mL per minute. Her calcium was 8.4, magnesium was 1.8. ASSESSMENT: In summary, this is a 42-year-old female patient, who was admitted with: 1. Suicidal ideation. 2. Suicidal attempts by self-cutting her right wrist and also drug overdose in her Xanax. She had a right wrist laceration. About 8 cm was repaired at the Emergency Room. 3. Acute depressive episode and chronic depression. 4. Hypokalemia, resolved. 5. Elevated creatinine, resolved. 6. Hypomagnesemia, resolved. 7. History of chronic alcohol abuse, although according to her she stopped drinking alcohol. PLAN: Plan is to await evaluation by the psychiatrist and decide the further management. JOANN ZARAGOZA MD DR: ALEX/kasey JOB#: [id number] / [id number]
[2017-12-23 17:35] VITALS: BP 111/66
[2017-12-23] MEDS ORDERED: HALOPERIDOL LACT 5 MG/ML VIAL. IM ONE (18:45)
[2017-12-23] MEDS ORDERED: HALOPERIDOL LACT 5 MG/ML VIAL. ONE (18:46)
--- NOTE | 2017-12-23 23:16 | DS ---
DATE OF DISCHARGE: 12/23/2017 HOSPITAL COURSE: The patient is a 42-year-old female patient who was basically admitted with severe depression and attempted suicide by self-cathing and drug overdose, her right wrist laceration, acute depressive episode and chronic depression. Her laceration was sutured by the ER physician and the Telepsych recommended admission for overdose and withdrawal. She was started on Klonopin 1 mg every 8 hours. She is stabilized medically. All her lab work has improved. Her hypokalemia, hypomagnesemia and acute kidney injury, resolved. As she is stable medically, a decision was made to discharge her to [facility] for inpatient psychiatric treatment. PHYSICAL EXAMINATION: GENERAL: When I saw her this afternoon, she was sitting propped up, eating her dinner comfortably in no apparent distress. VITAL SIGNS: Stable with a heart rate of 73, blood pressure was 109/61, temperature was 98.8, respiratory rate was 16, and oxygen saturation was 97%. The rest of clinical examination is stable. EXTREMITIES: Her right wrist wound is covered with dressing. LABORATORY DATA: This morning showed a serum sodium 141, potassium 4.3, chloride 108, bicarbonate 26, anion gap of 7, BUN 11, creatinine 1, estimated GFR was 61, glucose was 93, calcium was 8.4, magnesium was 1.8. Her white cell count was 10,400, hemoglobin 13, hematocrit 39, MCV 96, and platelet count 220,000. DISCHARGE MEDICATIONS: The patient was discharged to [facility] to continue on hydrocodone/APAP 5/325 mg one tablet every 4 hours, lactobacillus rhamnosus 1 capsule b.i.d., nicotine patch 21 mg topically once a day, Keflex 500 mg 3 times a day, clonazepam 1 mg 3 times a day, Tylenol 650 mg every 6 hours. FINAL DISCHARGE DIAGNOSES: 1. Acute depressive episode and chronic depression. 2. Suicidal ideation. 3. Suicidal attempt by self-cathing her right wrist and drug overdose. 4. Hypokalemia, resolved. 5. Elevated creatinine, resolved. 6. Hypomagnesemia, resolved. JOANN ZARAGOZA MD DR: ALEX/kasey JOB#: [id number] / [id number]
== END 2017-12-23 20:18 | DRG 908 ==
LOC: EEVIPCON 19:49 → ER 19:49 → ICU 23:00
PROVIDERS: ADMIT Family Medicine; ATTEND Family Medicine
PROC: 0XQG0ZZ Repair Right Wrist Region, Open Approach (ICD-10-PCS; principal; 2017-12-22)
DX: T42.4X2A Poisoning by benzodiazepines, intentional self-harm, initial encounter (principal); N17.9 Acute kidney failure, unspecified; F31.30 Bipolar disorder, current episode depressed, mild or moderate severity, unspecified; S61.511A Laceration without foreign body of right wrist, initial encounter; E83.42 Hypomagnesemia; E87.6 Hypokalemia; F17.210 Nicotine dependence, cigarettes, uncomplicated; N18.9 Chronic kidney disease, unspecified; X78.9XXA Intentional self-harm by unspecified sharp object, initial encounter; F10.21 Alcohol dependence, in remission; F12.90 Cannabis use, unspecified, uncomplicated; Y90.0 Blood alcohol level of less than 20 mg/100 ml; Y92.481 Parking lot as the place of occurrence of the external cause; Z90.710 Acquired absence of both cervix and uterus; Z91.5 Personal history of self-harm; Z90.49 Acquired absence of other specified parts of digestive tract; Z90.5 Acquired absence of kidney; Y93.89 Activity, other specified; Y99.8 Other external cause status
CPT/HCPCS: 12004; 36415; 71045; 80048; 80076; 80307; 81001; 83735; 85025; 85610; 85730; 87086; 87641; 90471; 90715; 93005; 96361; 96365; 96375; 99292; G0480; J0696; J1630; J1650; 99291-25; G0479; J7030

== ENCOUNTER 2018-01-05 17:09 | Emergency (ER) | payer BC ==
[~2018-01-05 17:09] MED LIST changes: +FURO20TA3 PO; +NAPR-514 PO; +PARO40TA3 PO
[2018-01-05 17:41] VITALS: BP 122/74
[2018-01-05 18:42] LABS: BILIRUBIN,URINE NEG (NEG); CLARITY,URINE HAZY; COLOR,URINE YELLOW; GLUCOSE,URINE NEG (NEG)
[2018-01-05 18:43] LABS: BACTERIA,URINE FEW /HPF (0-FEW); NITRITE,URINE NEG (NEG); SQUAMOUS EPITHELIAL CELL,UR MOD /LPF; UROBILINOGEN,URINE 0.2 mg/dL (0.2 mg/dL)
== END 2018-01-05 18:40 | disposition left against medical advice (07) ==
LOC: ER 17:09
DX: R10.9 Unspecified abdominal pain (principal); R39.198 Other difficulties with micturition; Z53.21 Procedure and treatment not carried out due to patient leaving prior to being seen by health care provider
CPT/HCPCS: 81001; 99281

== ENCOUNTER 2018-01-16 09:31 | Emergency (ER) | payer BC ==
[2018-01-16] MEDS ORDERED: ONDANSETRON ODT 4 MG TAB.RAPDIS PO ONE (09:45)
[2018-01-16 10:26] LABS: BACTERIA,URINE FEW /HPF (0-FEW); BILIRUBIN,URINE SMALL (NEG); CLARITY,URINE CLOUDY; COLOR,URINE AMBER; GLUCOSE,URINE NEG (NEG); HYALINE CASTS, URINE OCC /HPF; NITRITE,URINE NEG (NEG); SQUAMOUS EPITHELIAL CELL,UR MANY /LPF; UROBILINOGEN,URINE 2 mg/dL (0.2 mg/dL)
[2018-01-16 10:32] LABS: AMPHETAMINE/METHAMPHETAMINE NEG (NEG); BARBITURATES NEG (NEG); BENZODIAZEPINES POS (NEG); CANNABINOIDS NEG (NEG); COCAINE NEG (NEG); METHADONE NEG (NEG); OPIATES NEG (NEG); PHENCYCLIDINE NEG (NEG)
--- NOTE | 2018-01-16 10:35 | PHYS DOC ---
General Chief Complaint: NAUSEA/VOMITING/DIARRHEA Stated Complaint: DIARRHEA AND VOMITTING Time Seen by MD: 10:06 Source: patient Exam Limitations: no limitations Problems: History of Present Illness Initial Comments Pt is 42/F to ED c/o N/V/D. Pt states she's had intermittent n/v/d for the past week, states she hasn't eaten past two days due to nausea. "My whole body hurts," has had sick contact similar symptoms. No focal abdominal pain complaints, no blood in stool/emesis , no travel/bad food exposure. Checked in to ED 01/05 for same symptoms but LWBS. Able to quickly produce urine upon arrival today, no retching/emesis, VS 98.2, 92, 18, 115/72, 98% RA. Recent ED visits for suicide attempt and etoh intoxication, has h/o substance abuse denies recent use. Denies chest pain, dyspnea, HANNA, focal neurodeficit. Tylenol, zofran odt, dicyclomine given, urine/ISTAT BMP check. Timing/Duration: 1 week, intermittent Severity: severe Modifying Factors: worse with eating Associated Symptoms: nausea/vomiting, other Allergies: Coded Allergies: No Known Drug Allergies (Unverified , 05/10/15) Past Medical History Medical History: other (bipolar, depression, suicide attempt, renal disease) Surgical History: appendectomy, cholecystectomy, other (DAVID, L nephrectomy) Social History Smoker: greater than 1 pack/day Alcohol: heavy (denies recent) Drugs: other (denies recent) Review of Systems Constitutional: denies chills, denies diaphoresis, denies fever, malaise EENTM: denies ear pain, denies nose pain, denies throat pain Respiratory: denies cough, denies shortness of breath, denies wheezing Cardiovascular: denies chest pain, denies palpitations, denies syncope Gastrointestinal: see HPI Genitourinary: denies dysuria, denies frequency, denies hematuria Musculoskeletal: see HPI, denies joint swelling, denies neck pain Psychiatric/Neurological: see HPI, denies headache Physical Exam General Appearance: no apparent distress Eyes: bilateral eye normal inspection, bilateral eye PERRL, bilateral eye EOMI Ear, Nose, Throat: hearing grossly normal, normal ENT inspection, normal pharynx, other (MMM) Neck: non-tender, supple Respiratory: chest non-tender, normal breath sounds, no respiratory distress Cardiovascular: normal peripheral pulses, regular rate, rhythm Gastrointestinal: soft (nondistended, mild generalized muscle and suprapubic TTP no r/g/m, BS normal) Rectal: deferred Back: no CVA tenderness, no vertebral tenderness Extremities: non-tender, normal inspection Neurologic/Psychiatric: sox analyst II-XII nml as tested, no motor/sensory deficits, alert, oriented x 3 Skin: normal color, warm/dry Orders, Labs, Meds ISTAT BMP reassuring UA: SE many, WBC 11-20, LE trace, 80 ket Symptoms appear to be viral GE. Pt well hydrated, I discussed diet/hydration/ smoking cessation/OTC and rx meds. Signs and symptoms to monitor as well as indications for urgent return to department discussed and questions answered. Expressed agreement/understanding with treatment plan. Departure Time of Disposition: 10:49 Disposition: 01 HOME, SELF-CARE Diagnosis: Gastroenteritis, UTI Condition: GOOD Patient Instructions: Urinary Tract Infection, [id number], Viral Gastroenteritis, [id number] Additional Instructions: As discussed, your symptoms appear to be related to a stomach virus. Will also treat for infection noted in your urine. Aggressive hydration with gatorade and water. Clear liquids today, advance diet tomorrow as tolerated. Work excuse today. OTC tylenol as needed. Rx: cipro, dicyclomine, zofran odt Follow up with your doctor early next week for recheck and urine culture results. Return to ED with new or changing symptoms. MICAELA CLEARY DO Jan 16, 2018 10:35
[2018-01-16] MEDS ORDERED: ACETAMINOPHEN 500 MG TABLET PO ONE (10:45)
[2018-01-16] MEDS ORDERED: DICYCLOMINE HCL 20 MG TABLET PO ONE (10:45)
[2018-01-16] MEDS ORDERED: DICY20TA3 PO (10:48)
[2018-01-16] MEDS ORDERED: CIPR250T30 PO (10:48)
[2018-01-16] MEDS ORDERED: ONDA4TAB10 PO (10:48)
[2018-01-16 11:00] VITALS: BP 124/66
[2018-01-16 11:39] LABS: HEMOGLOBIN ISTAT 13.9 gm/dL; POTASSIUM ISTAT 3.7 mmol/L (3.5-5.0)
== END 2018-01-16 11:00 | disposition home or self-care (01) ==
LOC: ER 09:31
DX: K52.9 Noninfective gastroenteritis and colitis, unspecified (principal); N39.0 Urinary tract infection, site not specified; F10.20 Alcohol dependence, uncomplicated; F31.9 Bipolar disorder, unspecified; N28.9 Disorder of kidney and ureter, unspecified; F17.210 Nicotine dependence, cigarettes, uncomplicated; Z91.5 Personal history of self-harm; Z90.49 Acquired absence of other specified parts of digestive tract
CPT/HCPCS: 36415; 80047; 80307; 81001; 87086; 99284; Q0162; G0479

== ENCOUNTER 2018-01-18 07:30 | Emergency (ER) | payer BC ==
[~2018-01-18 07:30] MED LIST changes: +CIPR250T30 PO; +DICY20TA3 PO; +ONDA4TAB10 PO
[2018-01-18] MEDS ORDERED: IV NORMAL SALINE 1,000ML 1,000 ML IV SCH (08:00)
[2018-01-18] MEDS ORDERED: ONDANSETRON PF 4 MG/2 ML VIAL. IV ONE (08:00)
[2018-01-18 08:29] LABS: BASO # 0.1 x10^3/uL (0.0-0.2); BASO % 1 % (0-3); EOS % 0 % (0-3); HEMOGLOBIN 15.7 g/dL (12.0-15.5); LYMPH # 1.4 x10^3/uL (1.0-4.8); LYMPH % 18 % (24-48); MEAN CORPUSCULAR HEMOGLOBIN 32 pg (25-35); MEAN CORPUSCULAR HGB CONC 35 g/dL (31-37); MEAN CORPUSCULAR VOLUME 92 fL (79-100); MONO # 0.5 x10^3/uL (0.0-1.1); MONO % 6 % (0-9); NEUT # 5.9 x10^3uL (1.8-7.7); NEUT % 75 % (31-73); PLATELET COUNT 214 x10^3/uL (140-400); RED CELL DISTRIBUTION WIDTH 12.8 % (11.5-14.5); WHITE BLOOD COUNT 7.9 x10^3/uL (4.0-11.0)
[2018-01-18 08:40] LABS: ALBUMIN 4.1 g/dL (3.4-5.0); ALBUMIN/GLOBULIN RATIO 1.4 (1.0-1.7); CALCIUM 9.2 mg/dL (8.5-10.1); CREATININE 1.2 mg/dL (0.6-1.0); GFR 49.5; POTASSIUM 3.3 mmol/L (3.5-5.1); TOTAL BILIRUBIN 0.5 mg/dL (0.2-1.0); TOTAL PROTEIN 7.1 g/dL (6.4-8.2)
[2018-01-18] MEDS ORDERED: LOPERAMIDE 2 MG CAPSULE PO ONE (09:00)
[2018-01-18] MEDS ORDERED: IV NORMAL SALINE 1,000ML 1,000 ML IV ONE (09:00)
[2018-01-18 09:14] LABS: AMPHETAMINE/METHAMPHETAMINE NEG (NEG); BARBITURATES NEG (NEG); BENZODIAZEPINES POS (NEG); CANNABINOIDS NEG (NEG); COCAINE NEG (NEG); METHADONE NEG (NEG); OPIATES NEG (NEG); PHENCYCLIDINE NEG (NEG)
[2018-01-18] MEDS ORDERED: FAMOTIDINE 20 MG/2 ML VIAL IVP ONE (09:15)
[2018-01-18] MEDS ORDERED: KETOROLAC 30 MG/ML VIAL. IV ONE (09:15)
[2018-01-18] MEDS ORDERED: METOCLOPRAMIDE HCL 10 MG/2 ML VIAL. IV ONE (09:15)
[2018-01-18 09:18] LABS: BILIRUBIN,URINE NEG (NEG); CLARITY,URINE HAZY; COLOR,URINE YELLOW; GLUCOSE,URINE NEG (NEG)
[2018-01-18 09:21] LABS: BACTERIA,URINE FEW /HPF (0-FEW); NITRITE,URINE NEG (NEG); SQUAMOUS EPITHELIAL CELL,UR MOD /LPF; UROBILINOGEN,URINE 1 mg/dL (0.2 mg/dL)
[2018-01-18 09:35] VITALS: BP 118/84
[2018-01-18] MEDS ORDERED: Percogesic PO (09:48)
[2018-01-18] MEDS ORDERED: METO10TA81 PO (09:48)
--- NOTE | 2018-01-18 09:49 | PHYS DOC ---
Past History Past Medical History: Anxiety, Bipolar, Depression, Renal Disease Past Surgical History: Hysterectomy, Other Smoking: Cigarettes Alcohol Use: None Drug Use: None Adult General Chief Complaint Chief Complaint: ABDOMINAL PAIN HPI HPI Patient is a [age] year old [sex] who presents with [] Review of Systems Review of Systems Constitutional: Denies fever or chills [] Eyes: Denies change in visual acuity, redness, or eye pain [] HENT: Denies nasal congestion or sore throat [] Respiratory: Denies cough or shortness of breath [] Cardiovascular: No additional information not addressed in HPI [] GI: Denies abdominal pain, nausea, vomiting, bloody stools or diarrhea [] : Denies dysuria or hematuria [] Musculoskeletal: Denies back pain or joint pain [] Integument: Denies rash or skin lesions [] Neurologic: Denies headache, focal weakness or sensory changes [] Endocrine: Denies polyuria or polydipsia [] All other systems were reviewed and found to be within normal limits, except as documented in this note. Current Medications Current Medications Current Medications Medications (Trade) Dose Ordered Sig/Dustin Start Time Stop Time Status Last Admin Dose Admin Famotidine (Pepcid Vial) 20 mg 1X ONCE 01/18/18 09:15 01/18/18 09:16 DC 01/18/18 09:22 20 MG Ketorolac Tromethamine (Toradol) 30 mg 1X ONCE 01/18/18 09:15 01/18/18 09:16 DC 01/18/18 09:21 30 MG Loperamide HCl (Imodium) 4 mg 1X ONCE 01/18/18 09:00 01/18/18 09:07 DC 01/18/18 09:21 4 MG Metoclopramide HCl (Reglan Vial) 10 mg 1X ONCE 01/18/18 09:15 01/18/18 09:16 DC 01/18/18 09:21 10 MG Ondansetron HCl (Zofran) 4 mg 1X ONCE 01/18/18 08:00 01/18/18 08:03 DC 01/18/18 08:20 4 MG Sodium Chloride 1,000 ml @ 1,000 mls/hr 1X ONCE 01/18/18 09:00 01/18/18 09:59 01/18/18 09:20 1,000 MLS/HR Allergies Allergies Allergies Coded Allergies Type Severity Reaction Last Updated Verified No Known Drug Allergies 05/10/15 No Physical Exam Physical Exam Constitutional: Well developed, well nourished, no acute distress, non-toxic appearance. [] HENT: Normocephalic, atraumatic, bilateral external ears normal, oropharynx moist, no oral exudates, nose normal. [] Eyes: PERRLA, EOMI, conjunctiva normal, no discharge. [] Neck: Normal range of motion, no tenderness, supple, no stridor. [] Cardiovascular:Heart rate regular rhythm, no murmur [] Lungs & Thorax: Bilateral breath sounds clear to auscultation [] Abdomen: Bowel sounds normal, soft, no tenderness, no masses, no pulsatile masses. [] Skin: Warm, dry, no erythema, no rash. [] Back: No tenderness, no CVA tenderness. [] Extremities: No tenderness, no cyanosis, no clubbing, ROM intact, no edema. [] Neurologic: Alert and oriented X 3, normal motor function, normal sensory function, no focal deficits noted. [] Psychologic: Affect normal, judgement normal, mood normal. [] Current Patient Data Vital Signs Vital Signs Date Time Temp Pulse Resp B/P (MAP) Pulse Ox O2 Delivery O2 Flow Rate FiO2 01/18/18 07:35 98.7 113 32 98 Room Air Lab Results Laboratory Tests Test 01/18/18 08:10 01/18/18 08:53 White Blood Count 7.9 x10^3/uL (4.0-11.0) Red Blood Count 4.90 x10^6/uL (3.50-5.40) Hemoglobin 15.7 g/dL (12.0-15.5) H Hematocrit 45.0 % (36.0-47.0) Mean Corpuscular Volume 92 fL (79-100) Mean Corpuscular Hemoglobin 32 pg (25-35) Mean Corpuscular Hemoglobin Concent 35 g/dL (31-37) Red Cell Distribution Width 12.8 % (11.5-14.5) Platelet Count 214 x10^3/uL (140-400) Neutrophils (%) (Auto) 75 % (31-73) H Lymphocytes (%) (Auto) 18 % (24-48) L Monocytes (%) (Auto) 6 % (0-9) Eosinophils (%) (Auto) 0 % (0-3) Basophils (%) (Auto) 1 % (0-3) Neutrophils # (Auto) 5.9 x10^3uL (1.8-7.7) Lymphocytes # (Auto) 1.4 x10^3/uL (1.0-4.8) Monocytes # (Auto) 0.5 x10^3/uL (0.0-1.1) Eosinophils # (Auto) 0.0 x10^3/uL (0.0-0.7) Basophils # (Auto) 0.1 x10^3/uL (0.0-0.2) Sodium Level 142 mmol/L (136-145) Potassium Level 3.3 mmol/L (3.5-5.1) L Chloride Level 104 mmol/L (98-107) Carbon Dioxide Level 20 mmol/L (21-32) L Anion Gap 18 (6-14) H Blood Urea Nitrogen 14 mg/dL (7-20) Creatinine 1.2 mg/dL (0.6-1.0) H Estimated GFR (Cockcroft-Gault) 49.5 BUN/Creatinine Ratio 12 (6-20) Glucose Level 118 mg/dL (70-99) H Calcium Level 9.2 mg/dL (8.5-10.1) Total Bilirubin 0.5 mg/dL (0.2-1.0) Aspartate Amino Transferase (AST) 20 U/L (15-37) Alanine Aminotransferase (ALT) 27 U/L (14-59) Alkaline Phosphatase 46 U/L (46-116) Troponin I Quantitative < 0.017 ng/mL (0-0.055) Total Protein 7.1 g/dL (6.4-8.2) Albumin 4.1 g/dL (3.4-5.0) Albumin/Globulin Ratio 1.4 (1.0-1.7) Lipase 156 U/L (73-393) Urine Collection Type Unknown Urine Color Yellow Urine Clarity Hazy Urine pH 6.0 Urine Specific [place] 1.025 Urine Protein >100 mg/dl (NEG-TRACE) Urine Glucose (UA) Neg mg/dL (NEG) Urine Ketones (Stick) >=160 mg/dL (NEG) Urine Blood Small (NEG) Urine Nitrite Neg (NEG) Urine Bilirubin Neg (NEG) Urine Urobilinogen Dipstick 1 mg/dL (0.2 mg/dL) Urine Leukocyte Esterase Neg (NEG) Urine RBC 3-5 /HPF (0-2) Urine WBC 1-4 /HPF (0-4) Urine Squamous Epithelial Cells Mod /LPF Urine Bacteria Few /HPF (0-FEW) Urine Mucus Slight /LPF Urine Opiates Screen Neg (NEG) Urine Methadone Screen Neg (NEG) Urine Barbiturates Neg (NEG) Urine Phencyclidine Screen Neg (NEG) Urine Amphetamine/Methamphetamine Neg (NEG) Urine Benzodiazepines Screen Pos (NEG) Urine Cocaine Screen Neg (NEG) Urine Cannabinoids Screen Neg (NEG) Urine Ethyl Alcohol Neg (NEG) EKG EKG [] Radiology/Procedures Radiology/Procedures [] Course & Med Decision Making Course & Med Decision Making Pertinent Labs and Imaging studies reviewed. (See chart for details) [This template was duplicated by mistake and there is another complete note for this patient.] Dragon Disclaimer Dragon Disclaimer This electronic medical record was generated, in whole or in part, using a voice recognition dictation system. Departure Departure: Impression: Primary Impression: Acute gastroenteritis Additional Impression: Mild dehydration Disposition: HOME, SELF-CARE (At 0945) Condition: IMPROVED Referrals: BRENDAN YLONS (PCP) Patient Instructions: Clear Liquid Diet, Viral Gastroenteritis Additional Instructions: Drink plenty of liquids Follow-up with your primary care physician in 3-5 days Return to ER if not getting better Scripts [Percogesic] No Conflict Check 1 TAB PO TID PRN Y for PAIN, #14 Prov: WOO SANTOS MD 01/18/18 Metoclopramide Hcl (REGLAN) 10 Mg Tablet 1 TAB PO TID, #15 TAB Prov: WOO SANTOS MD 01/18/18 Problem Qualifiers WOO SANTOS MD Jan 18, 2018 09:49
--- NOTE | 2018-01-18 10:30 | PHYS DOC ---
Past History Past Medical History: Anxiety, Bipolar, Depression, Renal Disease Past Surgical History: Hysterectomy, Other Smoking: Cigarettes Alcohol Use: None Drug Use: None Adult General Chief Complaint Chief Complaint: nausea, vomiting, diarrhea, abdominal pain HPI HPI 42-year-old female patient with history of anxiety and bipolar disorder complaining of frequent episodes of nausea and vomiting and diarrhea for the last 4 days. Patient states she had more than 15 episodes of nonbloody vomiting every day and more than 10 episodes of diarrhea with generalized cramping abdominal pain without radiation. Patient rated her pain 6/10. Patient states she had temperature of 102 at home and complaining of decrease of urine output. She came to emergency room 4 days ago and left before seeing and seen on January 16 and had unremarkable i-STAT and treated with oral medication and discharged home but state the medication does not helping her. Patient states she has history of anxiety and unable to take her anxiety medication. Review of Systems Review of Systems Constitutional: Reports fever Eyes: Denies change in visual acuity, redness, or eye pain [] HENT: Denies nasal congestion or sore throat [] Respiratory: Denies cough or shortness of breath [] Cardiovascular: No additional information not addressed in HPI [] GI: Reports abdominal pain, nausea, vomiting, diarrhea [] : Denies dysuria or hematuria [] Musculoskeletal: Denies back pain or joint pain [] Integument: Denies rash or skin lesions [] Neurologic: Denies headache, focal weakness or sensory changes [] Endocrine: Denies polyuria or polydipsia [] Denies suicidal and homicidal ideation All other systems were reviewed and found to be within normal limits, except as documented in this note. Current Medications Current Medications Current Medications Medications (Trade) Dose Ordered Sig/Dustin Start Time Stop Time Status Last Admin Dose Admin Ondansetron HCl (Zofran) 4 mg 1X ONCE 01/18/18 08:00 01/18/18 08:03 DC 01/18/18 08:20 4 MG Sodium Chloride 1,000 ml @ 1,000 mls/hr Q1H 01/18/18 08:00 01/18/18 08:59 01/18/18 08:19 1,000 MLS/HR Allergies Allergies Allergies Coded Allergies Type Severity Reaction Last Updated Verified No Known Drug Allergies 05/10/15 No Physical Exam Physical Exam Constitutional: Well nourished, mild distress, non-toxic appearance, very anxious. [] HENT: Normocephalic, atraumatic, oropharynx dry, no oral exudates, nose normal. [] Eyes: PERRLA, EOMI, conjunctiva normal, no discharge. [] Neck: Normal range of motion, no tenderness, supple, no stridor. [] Cardiovascular: Tachycardia, no murmur [] Lungs & Thorax: Bilateral breath sounds clear to auscultation [] Abdomen: Bowel sounds normal, soft, no tenderness, no masses, no pulsatile masses, periumbilical guarding. [] Skin: Warm, dry, no erythema, no rash. [] Back: No tenderness, no CVA tenderness. [] Extremities: No tenderness, no cyanosis, no clubbing, ROM intact, no edema. [] Neurologic: Alert and oriented X 3, normal motor function, normal sensory function, no focal deficits noted. [] Psychologic: Anxious, judgement normal, mood normal. [] Current Patient Data Vital Signs Vital Signs Date Time Temp Pulse Resp B/P (MAP) Pulse Ox O2 Delivery O2 Flow Rate FiO2 01/18/18 07:35 98.7 113 32 98 Room Air Lab Results Laboratory Tests Test 01/18/18 08:10 White Blood Count 7.9 x10^3/uL (4.0-11.0) Red Blood Count 4.90 x10^6/uL (3.50-5.40) Hemoglobin 15.7 g/dL (12.0-15.5) H Hematocrit 45.0 % (36.0-47.0) Mean Corpuscular Volume 92 fL (79-100) Mean Corpuscular Hemoglobin 32 pg (25-35) Mean Corpuscular Hemoglobin Concent 35 g/dL (31-37) Red Cell Distribution Width 12.8 % (11.5-14.5) Platelet Count 214 x10^3/uL (140-400) Neutrophils (%) (Auto) 75 % (31-73) H Lymphocytes (%) (Auto) 18 % (24-48) L Monocytes (%) (Auto) 6 % (0-9) Eosinophils (%) (Auto) 0 % (0-3) Basophils (%) (Auto) 1 % (0-3) Neutrophils # (Auto) 5.9 x10^3uL (1.8-7.7) Lymphocytes # (Auto) 1.4 x10^3/uL (1.0-4.8) Monocytes # (Auto) 0.5 x10^3/uL (0.0-1.1) Eosinophils # (Auto) 0.0 x10^3/uL (0.0-0.7) Basophils # (Auto) 0.1 x10^3/uL (0.0-0.2) EKG EKG [] Radiology/Procedures Radiology/Procedures [] Course & Med Decision Making Course & Med Decision Making Pertinent Labs reviewed. (See chart for details) Evaluation of patient in ER showed 42-year-old female patient who drove to emergency room by herself and complaining of nausea and vomiting and diarrhea for 4 days. Patient had dry heaves in ER with tachycardia and was very anxious. Patient did not have any vomiting or diarrhea while she was in ER and treated with IV fluid and Zofran and Reglan and Toradol and felt better. Patient requesting hospitalization. Patient had mild dehydration with unremarkable labs except for mild dehydration and potassium of 3.3. Patient tolerated oral intake. Patient was informed about treatment of viral gastroenteritis and needs to follow with her primary care physician and no need for hospitalization for her current condition. Prescription for Reglan and Percogesic was given. I've spoken with the patient and/or caregivers. I've explained the patient's condition, diagnosis and treatment plan based on information available to me at this time. I've answered the patient's and/or caregivers questions and addressed any concerns. The patient and/or caregivers have a good understanding the patient's diagnosis, condition and treatment plan as can be expected at this point. Vital signs have been stabilized. The patient's condition is stable for discharge from the emergency department. The patient will pursue further outpatient evaluation with her primary care provider or other designated consulting physician as outlined in the discharge instructions. Patient and/or caregivers are agreeable to this plan of care and follow-up instructions have been explained in detail. The patient and/or caregivers have received these instructions in written format and expressed understanding of these discharge instructions. The patient and her caregivers are aware that if any significant change in condition or worsening of symptoms should prompt him to immediately return to this of the closest emergency department. If an emergent department is not readily available I would encourage him to call 911. Pool Disclaimer Pool Disclaimer This electronic medical record was generated, in whole or in part, using a voice recognition dictation system. Departure Departure: Impression: Primary Impression: Viral gastroenteritis Additional Impressions: Mild dehydration Anxiety Tobacco use disorder Hypokalemia Disposition: HOME, SELF-CARE (At 0940) Condition: IMPROVED Referrals: BRENDAN LYONS (PCP) Patient Instructions: Clear Liquid Diet, Dehydration, Adult, Smoking Cessation , Tips For Success, Viral Gastroenteritis Additional Instructions: Drink plenty of liquids Follow-up with your primary care physician in 3-5 days Return to ER if not getting better Take liquid diet up to 24 hours after the last vomiting Problem Qualifiers WOO SANTOS MD Jan 18, 2018 10:30
== END 2018-01-18 10:00 | disposition home or self-care (01) ==
LOC: ER 07:30
DX: A08.4 Viral intestinal infection, unspecified (principal); E86.0 Dehydration; E87.6 Hypokalemia; F41.9 Anxiety disorder, unspecified; F31.9 Bipolar disorder, unspecified; F17.210 Nicotine dependence, cigarettes, uncomplicated; Z90.710 Acquired absence of both cervix and uterus
CPT/HCPCS: 36415; 80053; 80307; 81001; 83690; 84484; 85025; 96361; 96374; 96375; 99284; J1885; J2405; J2765; S0028; G0479; J7030

== ENCOUNTER 2018-08-11 11:48 | Emergency (ER) | payer BC ==
[~2018-08-11] VITALS: Ht 180.3 cm; Wt 97.1 kg
[~2018-08-11 11:48] MED LIST changes: +METO10TA81 PO; +Percogesic PO; +TRAZ-86 PO; -TRAZ-90 PO
[2018-08-11] MEDS ORDERED: IV NORMAL SALINE 1,000ML 1,000 ML IV SCH (12:05)
--- NOTE | 2018-08-11 12:10 | PHYS DOC ---
Past History Past Medical History: Anxiety, Bipolar, Depression, Renal Disease Past Surgical History: Hysterectomy, Other Additional Past Surgical Histo: left nephrectomy Smoking: Cigarettes Alcohol Use: None Drug Use: Cocaine Adult General Chief Complaint Chief Complaint: CHEST PAIN HPI HPI Patient is a 43-year-old female who presents to the emergency department for evaluation. She states that she just didn't feel well all weekend, she spent most of the day in bed yesterday. She states that all this began after she smoked cocaine on Saturday night, she states this was the first time she has done so. She states that this morning while at work, she felt sharp left-sided chest discomfort. The pain is worse with deep breathing also worsens with palpation of her anterior chest. She also reports pain "all over her body", and is also having pain in her right kidney, which hasn't present for the past few days. She has a history of a left nephrectomy in the past, secondary to her ureteral abnormalities. She has not had any fevers or chills, nausea, vomiting. She does not have any family history of premature onset coronary artery disease. There are no alleviating, or exacerbating factors to the patient's symptoms. Assuming a negative troponin, her HEART score would be 0. She is PERC/Wells negative for pulmonary embolus. Patient states that she has used no other illicit substances since Saturday night , and denies any other drug use. Review of Systems Review of Systems Constitutional: Denies fever or chills [] Eyes: Denies change in visual acuity, redness, or eye pain [] HENT: Denies nasal congestion or sore throat [] Respiratory: Denies cough or shortness of breath [] Cardiovascular: No additional information not addressed in HPI [] GI: Denies abdominal pain, nausea, vomiting, bloody stools or diarrhea [] : Denies dysuria or hematuria. Does report right-sided kidney pain.[] Musculoskeletal: Denies back pain or joint pain. Does report diffuse myalgias. [ ] Integument: Denies rash or skin lesions [] Neurologic: Denies headache, focal weakness or sensory changes [] Endocrine: Denies polyuria or polydipsia [] All other systems were reviewed and found to be within normal limits, except as documented in this note. Allergies Allergies Allergies Coded Allergies Type Severity Reaction Last Updated Verified No Known Drug Allergies 05/10/15 No Physical Exam Physical Exam PHYSICAL EXAM: CONSTITUTIONAL: Well developed, well nourished HEAD: normocephalic, atraumatic EENT: PERRL, EOMI. Conjunctivae normal color, sclerae non-icteric; moist mucous membranes. NECK: Supple, non-tender; no meningismus. LUNGS: Lungs CTA, breathing even and unlabored. Normal air movement. HEART: Regular rate and rhythm, no murmur CHEST: No deformity; palpation of the left anterior chest wall reproduces the patient's pain. ABDOMEN: The abdomen is soft, and non-tender, no masses or bruits. EXTREM: Normal ROM; no deformity, no calf tenderness. Normal pulses palpable in all extremities. There is no pedal edema. SKIN: No rash; no diaphoresis NEURO: Alert; normal speech and cognition; CN's grossly intact; strength grossly intact without focal deficit. BACK: No CVA TTP. Current Patient Data Lab Results Laboratory Tests Test 08/11/18 12:09 08/11/18 12:24 Urine Collection Type Unknown Urine Color Yellow Urine Clarity Hazy Urine pH 5.5 Urine Specific [place] 1.020 Urine Protein Neg Urine Glucose (UA) Neg mg/dL Urine Ketones (Stick) Neg mg/dL Urine Blood Small Urine Nitrite Neg Urine Bilirubin Neg Urine Urobilinogen Dipstick 0.2 mg/dL Urine Leukocyte Esterase Trace Urine RBC 6-10 /HPF Urine WBC 1-4 /HPF Urine Squamous Epithelial Cells Mod /LPF Urine Bacteria Mod /HPF Urine Mucus Slight /LPF White Blood Count 8.0 x10^3/uL Red Blood Count 4.19 x10^6/uL Hemoglobin 13.7 g/dL Hematocrit 40.6 % Mean Corpuscular Volume 97 fL Mean Corpuscular Hemoglobin 33 pg Mean Corpuscular Hemoglobin Concent 34 g/dL Red Cell Distribution Width 13.8 % Platelet Count 269 x10^3/uL Neutrophils (%) (Auto) 70 % Lymphocytes (%) (Auto) 22 % Monocytes (%) (Auto) 6 % Eosinophils (%) (Auto) 1 % Basophils (%) (Auto) 1 % Neutrophils # (Auto) 5.6 x10^3uL Lymphocytes # (Auto) 1.7 x10^3/uL Monocytes # (Auto) 0.5 x10^3/uL Eosinophils # (Auto) 0.1 x10^3/uL Basophils # (Auto) 0.1 x10^3/uL Sodium Level 137 mmol/L Potassium Level 3.8 mmol/L Chloride Level 104 mmol/L Carbon Dioxide Level 25 mmol/L Anion Gap 8 Blood Urea Nitrogen 14 mg/dL Creatinine 1.2 mg/dL Estimated GFR (Cockcroft-Gault) 49.3 BUN/Creatinine Ratio 12 Glucose Level 90 mg/dL Calcium Level 8.4 mg/dL Magnesium Level 1.6 mg/dL Total Bilirubin 0.2 mg/dL Aspartate Amino Transf (AST/SGOT) 16 U/L Alanine Aminotransferase (ALT/SGPT) 21 U/L Alkaline Phosphatase 53 U/L Creatine Kinase 148 U/L Troponin I Quantitative < 0.017 ng/mL [id number] Natriuretic Peptide 129 pg/mL Total Protein 6.2 g/dL Albumin 3.3 g/dL Albumin/Globulin Ratio 1.1 Current Medications Medications (Trade) Dose Ordered Sig/Dustin Route PRN Reason Start Time Stop Time Status Last Admin Dose Admin Aspirin (Children'S Aspirin) 324 mg 1X ONCE PO 08/11/18 12:45 08/11/18 12:46 DC 08/11/18 12:31 Lorazepam (Ativan) 0.5 mg 1X ONCE IV 08/11/18 12:45 08/11/18 12:46 DC 08/11/18 12:33 Sodium Chloride 1,000 ml @ 100 mls/hr Q10H IV 08/11/18 12:05 08/11/18 22:04 08/11/18 12:30 EKG EKG [Normal sinus rhythm with a normal rate, normal axis, normal intervals, there are no acute ischemic ST/T changes.] Radiology/Procedures Radiology/Procedures [] Course & Med Decision Making Course & Med Decision Making Pertinent Labs and Imaging studies reviewed. (See chart for details) [1:25 PM: D-dimer test was not performed, as the patient is considered low risk for PE, and I feel that the risk of a false positive d-dimer warrant doing CT imaging outweighs the potential benefit of d-dimer testing, especially given the patient's history of a unilateral nephrectomy. I discussed the test results with the patient. Given that her chest discomfort began about 60 hours after her cocaine use of do not think that her chest pain is related to cocaine use at this time. Her symptoms are suggestive of musculoskeletal etiology. I do believe, however, that her general malaise and weakness might be related to recent cocaine use. I was discussing the test results with the patient, and she became upset, that her test results did not demonstrate any abnormality. I was discussing with the patient about repeating an EKG to ensure that there are no new developed ischemic or progressive ischemic changes on the EKG but she declined any further testing at this time and began pulling off her monitoring equipment and is going to leave the emergency department. She expressed understanding of the limitation that lack of additional testing would place on her evaluation. I discussed the test results with the patient in detail. She has had microscopic hematuria in the past, and I encouraged her follow up with her primary care provider for further outpatient evaluation. She would benefit from outpatient nephrology referral, given her history of a solitary kidney. The patient's creatinine stable. I attempted to persuade the patient to stay for discharge instructions, and I did discuss the importance of smoking cessation as well as avoiding cocaine use and other substance abuse in the future. Return precautions and need for further outpatient evaluation were discussed in detail. Dragon Disclaimer Dragon Disclaimer This electronic medical record was generated, in whole or in part, using a voice recognition dictation system. Departure Departure: Impression: Primary Impression: Chest pain Additional Impressions: Substance abuse Microscopic hematuria Disposition: 01 HOME, SELF-CARE Condition: STABLE Referrals: BRENDAN LYONS (PCP) Patient Instructions: Chest Pain (Nonspecific), Cocaine Abuse-Brief, Hematuria , Adult, Smoking Cessation, Substance Abuse-Brief Additional Instructions: Follow-up with your primary care provider for further evaluation. Urine test today showed a small amount of blood in your urine. Further outpatient evaluation is warranted, especially given your history of a single kidney. Contact your primary care provider to arrange further testing and possible nephrology referral. Problem Qualifiers CHRIS KAUR MD Aug 11, 2018 12:10
--- NOTE | 2018-08-11 12:24 | RAD ---
EXAM: Chest, 2 views. HISTORY: Chest pain. COMPARISON: None. FINDINGS: 2 views of the chest are obtained. There is no infiltrate, pleural effusion or pneumothorax. The heart is normal in size. IMPRESSION: No acute pulmonary finding. Electronically signed by: Lennei Padron MD (08/11/2018 12:21 PM) [place] [id number]
[2018-08-11 12:31] LABS: BILIRUBIN,URINE NEG (NEG); CLARITY,URINE HAZY; COLOR,URINE YELLOW; GLUCOSE,URINE NEG (NEG); NITRITE,URINE NEG (NEG); UROBILINOGEN,URINE 0.2 mg/dL (0.2 mg/dL)
[2018-08-11 12:32] LABS: BACTERIA,URINE MOD /HPF (0-FEW); SQUAMOUS EPITHELIAL CELL,UR MOD /LPF
[2018-08-11 12:37] LABS: BASO # 0.1 x10^3/uL (0.0-0.2); BASO % 1 % (0-3); EOS # 0.1 x10^3/uL (0.0-0.7); EOS % 1 % (0-3); HEMATOCRIT 40.6 % (36.0-47.0); HEMOGLOBIN 13.7 g/dL (12.0-15.5); LYMPH # 1.7 x10^3/uL (1.0-4.8); LYMPH % 22 % (24-48); MEAN CORPUSCULAR HEMOGLOBIN 33 pg (25-35); MEAN CORPUSCULAR HGB CONC 34 g/dL (31-37); MEAN CORPUSCULAR VOLUME 97 fL (79-100); MONO # 0.5 x10^3/uL (0.0-1.1); MONO % 6 % (0-9); NEUT # 5.6 x10^3uL (1.8-7.7); NEUT % 70 % (31-73); PLATELET COUNT 269 x10^3/uL (140-400); RED BLOOD COUNT 4.19 x10^6/uL (3.50-5.40); RED CELL DISTRIBUTION WIDTH 13.8 % (11.5-14.5)
[2018-08-11] MEDS ORDERED: ASPIRIN 81 MG TAB.CHEW PO ONE (12:45)
[2018-08-11] MEDS ORDERED: LORazepam 2 MG/ML VIAL IV ONE (12:45)
[2018-08-11 13:00] LABS: ALBUMIN 3.3 g/dL (3.4-5.0); ALBUMIN/GLOBULIN RATIO 1.1 (1.0-1.7); CALCIUM 8.4 mg/dL (8.5-10.1); CREATININE 1.2 mg/dL (0.6-1.0); GFR 49.3; MAGNESIUM 1.6 mg/dL (1.8-2.4); POTASSIUM 3.8 mmol/L (3.5-5.1); TOTAL BILIRUBIN 0.2 mg/dL (0.2-1.0); TOTAL PROTEIN 6.2 g/dL (6.4-8.2)
[2018-08-11 13:25] VITALS: BP 113/70
--- NOTE | 2018-08-11 15:32 | EKG ---
[address] [address] Test Date: 2018-08-11 Test Time: 11:53:11 Pat Name: CARLOS KUHN Department: Room: Gender: F [employer]ishing [employer] Mounter: : 1975 Requested By: CHRIS KAUR Order Number: [id number] Reading MD: Serg Valdez MD Measurements Intervals [place] Rate: 75 P: 33 MS: 130 QRS: 60 QRSD: 76 T: 26 QT: 360 QTc: 404 Interpretive Statements SINUS RHYTHM Electronically Signed On 08-12-2018 12:44:11 CDT by Serg Valdez MD
== END 2018-08-11 13:36 | disposition home or self-care (01) ==
LOC: ER 11:48
DX: R07.89 Other chest pain (principal); M79.1 Myalgia; F12.10 Cannabis abuse, uncomplicated; R31.29 Other microscopic hematuria; F41.9 Anxiety disorder, unspecified; F31.9 Bipolar disorder, unspecified; F17.210 Nicotine dependence, cigarettes, uncomplicated; Z90.5 Acquired absence of kidney
CPT/HCPCS: 36415; 71046; 80053; 81001; 82550; 83735; 83880; 84484; 85025; 87086; 93005; 96361; 96374; 99285; J2060; J7030

== ENCOUNTER 2020-08-10 11:33 | Emergency (ER) | payer SELFPAY ==
[~2020-08-10] VITALS: Ht 180.3 cm; Wt 95.6 kg
[~2020-08-10 11:33] MED LIST changes: +TRAZ-125 PO; -TRAZ-86 PO
[2020-08-10 12:26] LABS: BASO # 0.1 x10^3/uL (0.0-0.2); BASO % 1 % (0-3); EOS # 0.3 x10^3/uL (0.0-0.7); EOS % 4 % (0-3); HEMATOCRIT 41.4 % (36.0-47.0); HEMOGLOBIN 14.1 g/dL (12.0-15.5); LYMPH # 1.9 x10^3/uL (1.0-4.8); LYMPH % 30 % (24-48); MEAN CORPUSCULAR HEMOGLOBIN 33 pg (25-35); MEAN CORPUSCULAR HGB CONC 34 g/dL (31-37); MEAN CORPUSCULAR VOLUME 96 fL (79-100); MONO # 0.4 x10^3/uL (0.0-1.1); MONO % 7 % (0-9); NEUT # 3.7 x10^3uL (1.8-7.7); NEUT % 58 % (31-73); PLATELET COUNT 216 x10^3/uL (140-400); RED BLOOD COUNT 4.32 x10^6/uL (3.50-5.40); WHITE BLOOD COUNT 6.3 x10^3/uL (4.0-11.0)
[2020-08-10 12:35] LABS: CALCIUM 8.7 mg/dL (8.5-10.1); CREATININE 1.2 mg/dL (0.6-1.0); GFR 48.8; POTASSIUM 4.3 mmol/L (3.5-5.1)
[2020-08-10] MEDS: IV NORMAL SALINE 1,000ML 1,000 ML IV ONE (12:38)
[2020-08-10 12:41] LABS: ALBUMIN 3.7 g/dL (3.4-5.0); ALBUMIN/GLOBULIN RATIO 1.2 (1.0-1.7); MAGNESIUM 1.9 mg/dL (1.8-2.4); TOTAL BILIRUBIN 0.4 mg/dL (0.2-1.0); TOTAL PROTEIN 6.8 g/dL (6.4-8.2)
[2020-08-10 12:54] LABS: CLARITY,URINE HAZY; COLOR,URINE YELLOW
[2020-08-10 12:55] LABS: BACTERIA,URINE 0 /HPF (0-FEW); BILIRUBIN,URINE NEG (NEG); GLUCOSE,URINE NEG (NEG); NITRITE,URINE NEG (NEG); SQUAMOUS EPITHELIAL CELL,UR MANY /LPF; UROBILINOGEN,URINE 0.2 mg/dL (0.2 mg/dL); YEAST,URINE PRESENT /HPF
[2020-08-10] MEDS: ONDANSETRON PF 4 MG/2 ML VIAL. IVP ONE (12:58)
[2020-08-10] MEDS: FLUCONAZOLE 100 MG TABLET. PO ONE (13:43)
[2020-08-10] MEDS ORDERED: HYDR-3165 PO (13:46)
[2020-08-10] MEDS ORDERED: NITR100C62 PO (13:46)
[2020-08-10] MEDS ORDERED: FLUC200T PO (13:47)
--- NOTE | 2020-08-10 13:47 | PHYS DOC ---
Past History Past Medical History: Anxiety, Bipolar, Depression, Renal Disease Past Surgical History: Hysterectomy, Other Additional Past Surgical Histo: left nephrectomy Smoking: Cigarettes Alcohol Use: None Drug Use: Cocaine General Adult EDM: Chief Complaint: ABDOMINAL PAIN HPI: HPI: Patient is a [age] year old [sex] who presents with [] Review of Systems: Review of Systems: Constitutional: Denies fever or chills Eyes: Denies change in visual acuity HENT: Denies nasal congestion or sore throat Respiratory: Denies cough or shortness of breath Cardiovascular: Denies chest pain or edema GI: Denies abdominal pain, nausea, vomiting, bloody stools or diarrhea : Denies dysuria Musculoskeletal: Denies back pain or joint pain Integument: Denies rash Neurologic: Denies headache, focal weakness or sensory changes Endocrine: Denies polyuria or polydipsia Lymphatic: Denies swollen glands Psychiatric: Denies depression or anxiety Heart Score: Risk Factors: Risk Factors: DM, Current or recent (<one month) smoker, HTN, HLP, family history of CAD, obesity. Risk Scores: Score 0 - 3: 2.5% MACE over next 6 weeks - Discharge Home Score 4 - 6: 20.3% MACE over next 6 weeks - Admit for Clinical Observation Score 7 - 10: 72.7% MACE over next 6 weeks - Early Invasive Strategies Current Medications: Current Meds: Current Medications Medications (Trade) Dose Ordered Sig/Dustin Start Time Stop Time Status Last Admin Dose Admin Fentanyl Citrate (Fentanyl 2ml Vial) 50 mcg 1X ONCE 08/10/20 12:45 08/10/20 12:55 DC 08/10/20 12:58 50 MCG Fluconazole (Diflucan) 200 mg 1X ONCE 08/10/20 13:30 08/10/20 13:31 DC Ondansetron HCl (Zofran) 4 mg 1X ONCE 08/10/20 12:45 08/10/20 12:55 DC 08/10/20 12:58 4 MG Sodium Chloride 1,000 ml @ 1,000 mls/hr 1X ONCE 08/10/20 12:15 08/10/20 13:14 DC 08/10/20 12:38 1,000 MLS/HR Allergies: Allergies: Allergies Coded Allergies Type Severity Reaction Last Updated Verified No Known Drug Allergies 05/10/15 No Physical Exam: PE: Constitutional: Well developed, well nourished, no acute distress, non-toxic appearance. [] HENT: Normocephalic, atraumatic, bilateral external ears normal, oropharynx moist, no oral exudates, nose normal. [] Eyes: PERRLA, EOMI, conjunctiva normal, no discharge. [] Neck: Normal range of motion, no tenderness, supple, no stridor. [] Cardiovascular:Heart rate regular rhythm, no murmur [] Lungs & Thorax: Bilateral breath sounds clear to auscultation [] Abdomen: Bowel sounds normal, soft, no tenderness, no masses, no pulsatile masses. [] Skin: Warm, dry, no erythema, no rash. [] Back: No tenderness, no CVA tenderness. [] Extremities: No tenderness, no cyanosis, no clubbing, ROM intact, no edema. [] Neurologic: Alert and oriented X 3, normal motor function, normal sensory function, no focal deficits noted. [] Psychologic: Affect normal, judgement normal, mood normal. [] Current Patient Data: Labs: Laboratory Tests Test 08/10/20 12:05 08/10/20 12:09 08/10/20 12:25 08/10/20 12:29 Urine Collection Type Unknown Urine Color Yellow Urine Clarity Hazy Urine pH 5.5 Urine Specific [place] 1.025 Urine Protein Neg (NEG-TRACE) Urine Glucose (UA) Neg mg/dL (NEG) Urine Ketones (Stick) Neg mg/dL (NEG) Urine Blood Neg (NEG) Urine Nitrite Neg (NEG) Urine Bilirubin Neg (NEG) Urine Urobilinogen Dipstick 0.2 mg/dL (0.2 mg/dL) Urine Leukocyte Esterase Neg (NEG) Urine RBC 1-2 /HPF (0-2) Urine WBC 5-10 /HPF (0-4) Urine Squamous Epithelial Cells Many /LPF Urine Bacteria 0 /HPF (0-FEW) Urine Mucus Mod /LPF Urine Yeast Present /HPF White Blood Count 6.3 x10^3/uL (4.0-11.0) Red Blood Count 4.32 x10^6/uL (3.50-5.40) Hemoglobin 14.1 g/dL (12.0-15.5) Hematocrit 41.4 % (36.0-47.0) Mean Corpuscular Volume 96 fL (79-100) Mean Corpuscular Hemoglobin 33 pg (25-35) Mean Corpuscular Hemoglobin Concent 34 g/dL (31-37) Red Cell Distribution Width 13.0 % (11.5-14.5) Platelet Count 216 x10^3/uL (140-400) Neutrophils (%) (Auto) 58 % (31-73) Lymphocytes (%) (Auto) 30 % (24-48) Monocytes (%) (Auto) 7 % (0-9) Eosinophils (%) (Auto) 4 % (0-3) H Basophils (%) (Auto) 1 % (0-3) Neutrophils # (Auto) 3.7 x10^3uL (1.8-7.7) Lymphocytes # (Auto) 1.9 x10^3/uL (1.0-4.8) Monocytes # (Auto) 0.4 x10^3/uL (0.0-1.1) Eosinophils # (Auto) 0.3 x10^3/uL (0.0-0.7) Basophils # (Auto) 0.1 x10^3/uL (0.0-0.2) Prothrombin Time 9.8 SEC (9.4-11.4) Prothrombin Time INR 0.9 (0.9-1.1) Activated Partial Thromboplast Time 24 SEC (23-33) Sodium Level 138 mmol/L (136-145) Potassium Level 4.3 mmol/L (3.5-5.1) Chloride Level 106 mmol/L (98-107) Carbon Dioxide Level 25 mmol/L (21-32) Anion Gap 7 (6-14) Blood Urea Nitrogen 15 mg/dL (7-20) Creatinine 1.2 mg/dL (0.6-1.0) H Estimated GFR (Cockcroft-Gault) 48.8 BUN/Creatinine Ratio 13 (6-20) Glucose Level 97 mg/dL (70-99) Calcium Level 8.7 mg/dL (8.5-10.1) Magnesium Level 1.9 mg/dL (1.8-2.4) Total Bilirubin 0.4 mg/dL (0.2-1.0) Aspartate Amino Transferase (AST) 12 U/L (15-37) L Alanine Aminotransferase (ALT) 21 U/L (14-59) Alkaline Phosphatase 55 U/L (46-116) Total Protein 6.8 g/dL (6.4-8.2) Albumin 3.7 g/dL (3.4-5.0) Albumin/Globulin Ratio 1.2 (1.0-1.7) Lipase 191 U/L (73-393) POC Urine HCG, Qualitative hcg negative (Negative) Lactic Acid Level 1.0 mmol/L (0.4-2.0) Vital Signs: Vital Signs Date Time Temp Pulse Resp B/P (MAP) Pulse Ox O2 Delivery O2 Flow Rate FiO2 08/10/20 12:58 16 98 Room Air 08/10/20 12:32 98.0 85 139/85 (103) EKG: EKG: [] Radiology/Procedures: Radiology/Procedures: [] Course & Med Decision Making: Course & Med Decision Making Pertinent Labs and Imaging studies reviewed. (See chart for details) [] Dragon Disclaimer: Dragon Disclaimer: This electronic medical record was generated, in whole or in part, using a voice recognition dictation system. Departure Departure: Impression: Primary Impression: Flank pain Additional Impressions: Hx of pyelonephritis Yeast cystitis Disposition: HOME/RESIDENCE PRIOR TO ADM Condition: STABLE Referrals: BRENDAN LYONS (PCP) Patient Instructions: Candidal Vulvovaginitis, Nghx-rl-Guab, Flank Pain, [id number], Pyelonephritis, Adult, Gwqr-[id number]-Enoi Scripts Fluconazole (DIFLUCAN) 200 Mg Tablet 1 TAB PO DAILY for yeast infection, #1 TAB Take upon completion of your antibiotic therapy. Prov: CARMEN CRISOSTOMO DO 08/10/20 Hydrocodone Bit/Acetaminophen (NORCO 5-325 TABLET) 1 Each Tablet 0.5-1 TAB PO Q6HRS PRN for PAIN, #10 TAB Prov: CARMEN CRISOSTOMO DO 08/10/20 Nitrofurantoin Monohyd/M-Cryst (MACROBID 100 MG CAPSULE) 100 Mg Capsule 1 CAP PO BID for UTI for 7 Days, #14 CAP Prov: CARMEN CRISOSTOMO DO 08/10/20 Justification of Admission: Justification of Admission: Justification of Admission Dx: N/A CARMEN CRISOSTOMO DO Aug 10, 2020 13:47
[2020-08-10 13:51] VITALS: BP 143/58
== END 2020-08-10 13:50 | disposition home or self-care (01) ==
LOC: ER 11:33
DX: B37.41 Candidal cystitis and urethritis (principal); F41.9 Anxiety disorder, unspecified; F31.9 Bipolar disorder, unspecified; F17.210 Nicotine dependence, cigarettes, uncomplicated; Z90.710 Acquired absence of both cervix and uterus; Z90.5 Acquired absence of kidney
CPT/HCPCS: 36415; 80053; 81001; 81025; 83605; 83690; 83735; 85025; 85610; 85730; 87040; 87086; 96361; 96374; 96375; 99284; J2405; J3010; J7030

== ENCOUNTER 2021-08-23 14:42 | Emergency (ER) | payer SELFPAY ==
[~2021-08-23] VITALS: Ht 182.9 cm; Wt 90.9 kg
[~2021-08-23 14:42] MED LIST changes: +FLUC200T PO; +HYDR-3165 PO; +NITR100C62 PO
[2021-08-23 14:50] VITALS: BP 131/80
--- NOTE | 2021-08-23 15:05 | PHYS DOC ---
Past History Past Medical History: Anxiety, Bipolar, Depression, Renal Disease (CARMEN GREENE APRN) Past Surgical History: Hysterectomy, Other Additional Past Surgical Histo: left nephrectomy (CARMEN GREENE APRN) Smoking: Cigarettes Alcohol Use: None Drug Use: None (CARMEN GREENE APRN) Adult General Chief Complaint Chief Complaint: DENTAL PROBLEM HPI HPI Patient is a 46-year-old female presents to the emergency department reporting she woke up this morning with a broken tooth, patient states she grinds her teeth and believes her tooth may become fractured during the night. Patient reports she is unable to secure an appointment with a dentist because she has no dental coverage care, states that she usually comes to the emergency department for pain medication and antibiotics. Patient denies numbness to her mouth or tongue. Denies numbness or swelling to her face, patient's reports a 10 out of 10 pain, did not take pain medication at home prior to arrival. Patient denies other physical complaints or physical concerns. (CARMEN GREENE APRN) Review of Systems Review of Systems 14 body systems of review of systems have been reviewed. See HPI for pertinent positives and negative responses, otherwise all other systems are negative, nonpertinent or noncontributory. Constitutional: Negative except as outlined in HPI above. Skin: Negative except as outlined in HPI above. Eyes: Negative except as outlined in HPI above. HENT: Negative except as outlined in HPI above. Respiratory: Negative except as outlined in HPI above. Cardiovascular: Negative except as outlined in HPI above. GI: Negative except as outlined in HPI above. : Negative except as outlined in HPI above. Musculoskeletal: Negative except as outlined in HPI above. Integument: Negative except as outlined in HPI above. Neurologic: Negative except as outlined in HPI above. Endocrine: Negative except as outlined in HPI above. Lymphatic: Negative except as outlined in HPI above. Psychiatric: Negative except as outlined in HPI above. (CARMEN GREENE APRN) Allergies Allergies Allergies Coded Allergies Type Severity Reaction Last Updated Verified No Known Drug Allergies 05/10/15 No (CARMEN GREENE APRN) Physical Exam Physical Exam Constitutional: Well developed, well nourished, no acute distress, non-toxic appearance. 46-year-old female in no apparent distress. HENT: Normocephalic, atraumatic. Oropharynx moist, pink, no deep tissue infectious process appreciated, no gum swelling appreciated, multiple missing teeth, remaining teeth in different stages of dental decay, marked dental caries, tooth #11 fractured with nerve exposure, no drainage or purulence appreciated. Eyes: Conjunctiva normal, no discharge. Neck: Normal range of motion, no stridor. Cardiovascular: No cyanosis appreciated, distal cap refill less than 2 seconds. Lungs & Thorax: Patient is in no respiratory distress, no audible adventitious lung sounds appreciated. Abdomen: Nontender, no abnormalities noted. Skin: Warm, dry, no erythema, no rash. Back: No tenderness, no deformities. Extremities: No tenderness, no cyanosis, no clubbing, ROM intact, no edema. Neurologic: Alert and oriented X 3, normal motor function, normal sensory func tion, no focal deficits noted. Psychologic: Affect normal, judgement normal, mood normal. (CARMEN GREENE APRN) EKG EKG [] (CARMEN GREENE APRN) Radiology/Procedures Radiology/Procedures [] (CARMEN GREENE APRN) Heart Score C/O Chest Pain: No Risk Factors: Risk Factors: DM, Current or recent (<one month) smoker, HTN, HLP, family hist ory of CAD, obesity. Risk Scores: Risk Factors: DM, Current or recent (<one month) smoker, HTN, HLP, family history of CAD, obesity. (CARMEN GREENE APRN) Course & Med Decision Making Course & Med Decision Making Pertinent Labs and Imaging studies reviewed. (See chart for details) 46-year-old female, vital signs reviewed, presents emergency department concerning a fractured tooth. Patient's physical examination reveals a fractured tooth #11. Will give 2 Vicodin's, started on Augmentin prophylaxis, strict follow-up with dentist today or tomorrow, patient reports that she does not have dental care, will give list of dental clinics. Discussed findings and ED planning with patient, patient is amenable to ED discharge planning. Discussed with the patient all findings and diagnostic testing as well as the need to follow-up with their primary care provider for further evaluation and treatment or return to the ED if any new or worsening symptoms. Strict return precautions were also discussed at length, the patient voiced understanding and agreement with the discharge planning. The patient was nontoxic in appearance, in no apparent distress, and hemodynamically stable at the time of disposition. (CARMEN GREENE APRN) Dragon Disclaimer Dragon Disclaimer This electronic medical record was generated, in whole or in part, using a voice recognition dictation system. (CARMEN GREENE APRN) Departure Departure: Impression: Primary Impression: Dental caries Additional Impression: Fractured tooth Disposition: HOME / SELF CARE / HOMELESS Condition: GOOD Referrals: BRENDAN LYONS (PCP) Patient Instructions: Dental Caries, Tooth Fracture Additional Instructions: You were seen in the emergency department today for a broken tooth. I have started you on an antibiotic, please take as directed till complete. Please follow-up with a dentist today or tomorrow, I have attached a list of dental clinics to this discharge document, please review and choose a dentist to see. Thank you for visiting our Emergency Department. It was a pleasure taking care of you today in the emergency department and we appreciate you trusting us with your care. If any additional problems come up don't hesitate to return to visit us. Please follow up with your primary care provider so they can plan additional care if needed and know about the problem that you had. If symptoms worsen come back to the Emergency Department. Any concerning symptoms that start such as chest pain, shortness of air, weakness or numbness on one side of the body, running high fevers or any other concerning symptoms return to the ER. Scripts Amoxicillin/Potassium Clav (AUGMENTIN 875-125 TABLET) 1 Each Tablet 1 TAB PO BID for fractured tooth for 10 Days, #20 TAB 0 Refills Prov: CARMEN GREENE APRN 08/23/21 Attending Signature Attending Signature I have reviewed the PA/APPOINTMENT SETTER's note and plan of care. I was available for consultation as needed during the patient's visit in the emergency department. I agree with the clinical impression, plan, and disposition. (CARMEN CRISOSTOMO DO) Problem Qualifiers Additional Impression: Fractured tooth Encounter type: initial encounter Fracture type: open Qualified Codes: S02.5XXB - Fracture of tooth (traumatic), initial encounter for open fracture CARMEN GREENE APRN Aug 23, 2021 15:05 CARMEN CRISOSTOMO DO Aug 23, 2021 15:38
[2021-08-23] MEDS ORDERED: AMOX1TAB61 PO (15:15)
[2021-08-23] MEDS: IBUPROFEN 600 MG TABLET. PO ONE (15:27)
[2021-08-23] MEDS: HYDROcodone/APAP 10/325 1 TAB TABLET PO ONE (15:27)
[2021-08-23] MEDS ORDERED: CHLO15MO2 PO (22:43)
[2021-08-23] MEDS ORDERED: PRED20TA PO (22:43)
== END 2021-08-23 15:32 | disposition home or self-care (01) ==
LOC: ER 14:42
DX: S02.5XXB Fracture of tooth (traumatic), initial encounter for open fracture (principal); K02.9 Dental caries, unspecified; F31.9 Bipolar disorder, unspecified; F17.210 Nicotine dependence, cigarettes, uncomplicated; X58.XXXA Exposure to other specified factors, initial encounter; Y93.89 Activity, other specified; Y92.89 Other specified places as the place of occurrence of the external cause; Y99.8 Other external cause status
CPT/HCPCS: 99283

== ENCOUNTER 2021-08-23 21:42 | Emergency (ER) | payer SELFPAY ==
[~2021-08-23] VITALS: Ht 182.9 cm; Wt 90.9 kg
[~2021-08-23 21:42] MED LIST changes: +AMOX1TAB61 PO
[2021-08-23 21:52] VITALS: BP 140/98
[2021-08-23] MEDS: LIDOCAINE 2%/EPI 1:100,000 20 ML VIAL. IJ ONE (22:19)
[2021-08-23] MEDS: DEXAMETHASONE 4 MG TABLET PO ONE (22:20)
[2021-08-23] MEDS ORDERED: PRED20TA PO (22:43)
[2021-08-23] MEDS ORDERED: CHLO15MO2 PO (22:43)
--- NOTE | 2021-08-23 22:43 | PHYS DOC ---
Past History Past Medical History: Anxiety, Bipolar, Depression, Renal Disease Additional Past Medical Histor: kidney disease Past Surgical History: Hysterectomy, Other Additional Past Surgical Histo: left nephrectomy Smoking: Cigarettes Alcohol Use: None Drug Use: None General Adult EDM: Chief Complaint: DENTAL PROBLEM HPI: HPI: Patient is a [age] year old [sex] who presents with [] Review of Systems: Review of Systems: Constitutional: Denies fever or chills Eyes: Denies redness or eye pain HENT: Denies nasal congestion or sore throat Respiratory: Denies cough or shortness of breath Cardiovascular: Denies chest pain or palpitations GI: Denies abdominal pain, nausea, or vomiting : Denies dysuria or hematuria Musculoskeletal: Denies back pain or joint pain Integument: Denies rash or skin lesions Neurologic: Denies headache, focal weakness or sensory changes Complete systems were reviewed and found to be within normal limits, except as documented in this note. Current Medications: Current Meds: Current Medications Medications (Trade) Dose Ordered Sig/Dustin Start Time Stop Time Status Last Admin Dose Admin Dexamethasone (Decadron) 10 mg 1X ONCE 08/23/21 22:15 08/23/21 22:16 DC 08/23/21 22:20 10 MG Lidocaine/ Epinephrine (Xylocaine 2%-Epi 1:100,000) 20 ml 1X ONCE 08/23/21 22:15 08/23/21 22:16 DC 08/23/21 22:19 20 ML Allergies: Allergies: Allergies Coded Allergies Type Severity Reaction Last Updated Verified No Known Drug Allergies 05/10/15 No Physical Exam: PE: Constitutional: Well developed, well nourished, no acute distress, non-toxic appearance HENT: Normocephalic, atraumatic Eyes: PERRL, EOMI, conjunctiva normal, no discharge Neck: Normal range of motion, no tenderness, supple Lungs & Thorax: No respiratory distress, equal chest rise and fall Abdomen: Soft, no tenderness Skin: Warm, dry, no erythema, no rash Back: No tenderness, no CVA tenderness Extremities: No tenderness, ROM intact, no edema Neurologic: Alert and oriented X 3, normal motor function, normal sensory function, no focal deficits noted Psychologic: Affect normal, judgment normal Current Patient Data: Vital Signs: Vital Signs Date Time Temp Pulse Resp B/P (MAP) Pulse Ox O2 Delivery O2 Flow Rate FiO2 08/23/21 21:52 97.6 18 20 140/98 (112) 98 Room Air EKG: EKG: [] Radiology/Procedures: Radiology/Procedures: [] Heart Score: C/O Chest Pain: N/A Course & Med Decision Making: Course & Med Decision Making Patient stable for discharge with outpatient follow-up with PCP. Discussed findings and plan with patient and spouse, who acknowledge understanding and agreement. Pool Disclaimer: Pool Disclaimer: This electronic medical record was generated, in whole or in part, using a voice recognition dictation system. Additional Procedures Progress Dental block: Verbal consent obtained. Time out performed. Hand hygiene utilized. Anesthesia obtained via superior-posterior alveolar block with a 25-gauge hypodermic needle and (3) mL's of lidocaine 2% with epinephrine. Patient tolerated procedure well and without difficulty. Departure Departure: Impression: Primary Impression: Dentalgia Additional Impression: Dental caries Disposition: HOME / SELF CARE / HOMELESS Condition: STABLE Referrals: BRENDAN LYONS (PCP) Patient Instructions: Dental Caries, Toothache-Brief Additional Instructions: Take previously prescribed antibiotic to completion. Use [id number] ibuprofen and or Tylenol for pain or discomfort. Scripts Chlorhexidine Gluconate (PERIDEX) 15 Ml Mouthwash 15 ML PO BID for Dental infection, #473 ML 0 Refills Prov: CARMEN CRISOSTOMO DO 08/23/21 Prednisone (PREDNISONE) 20 Mg Tablet 2 TAB PO DAILY for Dental pain, #8 TAB Start this prescription tomorrow, 08/24/21 Prov: CARMEN CRISOSTOMO DO 08/23/21 CARMEN CRISOSTOMO DO Aug 23, 2021 22:43
== END 2021-08-23 23:05 | disposition home or self-care (01) ==
LOC: ER 21:42
DX: K02.9 Dental caries, unspecified (principal); F41.9 Anxiety disorder, unspecified; F31.9 Bipolar disorder, unspecified; F17.210 Nicotine dependence, cigarettes, uncomplicated
CPT/HCPCS: 64400; 99284; J8540

== ENCOUNTER 2022-01-27 13:57 | Emergency (ER) | payer SELFPAY ==
[~2022-01-27] VITALS: Ht 177.8 cm; Wt 90.9 kg
[~2022-01-27 13:57] MED LIST changes: +CHLO15MO2 PO; +DICY20TA PO; -DICY20TA3 PO; -LURA80TA PO; +LURA80TA2 PO; +PRED20TA PO
[2022-01-27] MEDS ORDERED: IV NORMAL SALINE 1,000ML 1,000 ML IV ONE (14:30)
[2022-01-27] MEDS ORDERED: KETOROLAC 30 MG/ML VIAL. IVP ONE (14:30)
[2022-01-27] MEDS ORDERED: IOHEXOL 300 MG/ML 75 ML VIAL. IV ONE (14:30)
[2022-01-27] MEDS ORDERED: ONDANSETRON PF 4 MG/2 ML VIAL. IVP ONE (14:30)
[2022-01-27 14:40] LABS: CLARITY,URINE CLEAR; COLOR,URINE YELLOW; GLUCOSE,URINE NEG (NEG)
[2022-01-27 14:41] LABS: BACTERIA,URINE 0 /HPF (0-FEW); NITRITE,URINE NEG (NEG); RBC,URINE OCC /HPF (0-2); SQUAMOUS EPITHELIAL CELL,UR MANY /LPF; UROBILINOGEN,URINE 0.2 mg/dL (0.2 mg/dL); WBC,URINE 0 /HPF (0-4)
[2022-01-27 14:42] LABS: BASO % 0 % (0-3); EOS # 0.4 x10^3/uL (0.0-0.7); EOS % 5 % (0-3); HEMATOCRIT 41.6 % (36.0-47.0); HEMOGLOBIN 13.7 g/dL (12.0-15.5); LYMPH # 3.2 x10^3/uL (1.0-4.8); LYMPH % 37 % (24-48); MEAN CORPUSCULAR HEMOGLOBIN 32 pg (25-35); MEAN CORPUSCULAR HGB CONC 33 g/dL (31-37); MEAN CORPUSCULAR VOLUME 96 fL (79-100); MONO # 0.7 x10^3/uL (0.0-1.1); MONO % 8 % (0-9); NEUT # 4.5 x10^3uL (1.8-7.7); NEUT % 51 % (31-73); PLATELET COUNT 260 x10^3/uL (140-400); RED BLOOD COUNT 4.33 x10^6/uL (3.50-5.40); RED CELL DISTRIBUTION WIDTH 13.1 % (11.5-14.5); WHITE BLOOD COUNT 8.9 x10^3/uL (4.0-11.0)
[2022-01-27] MEDS ORDERED: CONTRAST GIVEN. MC PRN (14:45)
[2022-01-27 14:52] LABS: CALCIUM 8.3 mg/dL (8.5-10.1)
[2022-01-27] MEDS ORDERED: KETOROLAC 15 MG/ML VIAL. ONE (14:55)
[2022-01-27 14:58] LABS: ALBUMIN 3.2 g/dL (3.4-5.0); TOTAL BILIRUBIN 0.1 mg/dL (0.2-1.0); TOTAL PROTEIN 6.3 g/dL (6.4-8.2)
[2022-01-27] MEDS ORDERED: KETOROLAC 15 MG/ML VIAL. IVP ONE (15:00)
--- NOTE | 2022-01-27 15:29 | RAD ---
Exam Date: 01/27/2022 2:[address] ABDOMEN+PELVIS W Indication: Reason: abdominal pain and vaginal bleeding, hx of hysterectomy / Spl. Instructions: omni 300 75ml iv only / History: . TECHNIQUE: CT examination of the abdomen and pelvis was performed following the administration of no nionic intravenous contrast. One or more of the following dose reduction techniques were utilized: *Automated exposure control (AEC) *Adjustment of mA and/or kV according to patient size *Use of iterative reconstruction technique *CT scan done according to ALARA, or ALARA/IMAGE GENTLY COMPARISON: May 04, 2016 FINDINGS: The visualized lung bases are clear. The dome of the liver is partially excluded. 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 Status post left nephrectomy. The liver, gallbladder, spleen, pancreas, adrenal glands and right kidney are otherwise normal. Urinary bladder is normal in appearance. There is a 3.2 cm left adnexal cyst. There is no bowel obstruction or inflammation. The appendix is normal. No significant atherosclerotic calcifications are seen. No lymphadenopathy or ascites is seen. Osseous structures are intact. IMPRESSION: No evidence of acute intra-abdominal pathology. Status post left nephrectomy. 3 cm left adnexal cyst. Electronically signed by: Adarsh Mccrary MD (01/27/2022 3:27 PM) [facility]
--- NOTE | 2022-01-27 15:35 | PHYS DOC ---
Past History Past Medical History: Anxiety, Bipolar, Depression, Renal Disease Additional Past Medical Histor: kidney disease (PHIL GARIBAY APRN) Past Surgical History: Hysterectomy, Other Additional Past Surgical Histo: left nephrectomy (PHIL GARIBAY APRN) Smoking: Cigarettes Alcohol Use: None Drug Use: None (PHIL GARIBAY APRN) General Adult EDM: Chief Complaint: PAIN ON URINATION HPI: HPI: Patient is a 46-year-old female that presents today with multiple complaints. Her first complaint is pain on urination, she states that over the last 5 to 7 days she is had pain with urination, she also is complaining of left upper canine tooth pain, she said that she has had this for quite some time and it is continuing to bother her, patient also states that she is having some vaginal bleeding and she has a history of hysterectomy in the past. Patient states she has not followed up with her primary care physician over the last couple of years for any of these complaints. I reviewed old medical records for this patient looks like the patient was here in July 2021 for her dental pain for which she was given dental resources for an antibiotic and pain medication, patient states she has not seen a dentist as of yet. (PHIL GARIBAY APRN) Review of Systems: Review of Systems: Constitutional: Denies fever or chills Eyes: Denies change in visual acuity HENT: Denies nasal congestion or sore throat Respiratory: Denies cough or shortness of breath Cardiovascular: Denies chest pain or edema GI: Denies abdominal pain, nausea, vomiting, bloody stools or diarrhea : Denies dysuria Musculoskeletal: Denies back pain or joint pain Integument: Denies rash Neurologic: Denies headache, focal weakness or sensory changes Endocrine: Denies polyuria or polydipsia Lymphatic: Denies swollen glands Psychiatric: Denies depression or anxiety (PHIL GARIBAY APRN) Current Medications: Current Meds: Current Medications Medications (Trade) Dose Ordered Sig/Dustin Start Time Stop Time Status Last Admin Dose Admin Info (Do NOT chart on this entry -- for MONITORING) 1 each PRN DAILY PRN 01/27/22 14:45 01/29/22 14:44 Iohexol (Omnipaque 300 Mg/ml) 75 ml 1X ONCE 01/27/22 14:30 01/27/22 14:37 DC 01/27/22 14:30 75 ML Ketorolac Tromethamine (Toradol 15mg Vial) 15 mg 1X ONCE 01/27/22 15:00 01/27/22 15:01 DC 01/27/22 14:58 15 MG Ketorolac Tromethamine (Toradol 30mg Vial) 30 mg 1X ONCE 01/27/22 14:30 01/27/22 14:28 DC Ondansetron HCl (Zofran) 4 mg 1X ONCE 01/27/22 14:30 01/27/22 14:31 DC 01/27/22 14:32 4 MG Sodium Chloride 1,000 ml @ 1,000 mls/hr 1X ONCE 01/27/22 14:30 01/27/22 15:29 DC 01/27/22 14:32 1,000 MLS/HR (PHIL GARIBAY APRN) Allergies: Allergies: Allergies Coded Allergies Type Severity Reaction Last Updated Verified No Known Drug Allergies 05/10/15 No (PHIL GARIBAY APRN) Physical Exam: PE: Constitutional: Well developed, well nourished, no acute distress, non-toxic appearance. [] HENT: Normocephalic, atraumatic, bilateral external ears normal, oropharynx moist, no oral exudates, nose normal. [] Eyes: PERRLA, EOMI, conjunctiva normal, no discharge. [] Neck: Normal range of motion, no tenderness, supple, no stridor. [] Cardiovascular:Heart rate regular rhythm, no murmur [] Lungs & Thorax: Bilateral breath sounds clear to auscultation [] Abdomen: Bowel sounds normal, soft, no tenderness, no masses, no pulsatile masses. [] Skin: Warm, dry, no erythema, no rash. [] Back: No tenderness, no CVA tenderness. [] Extremities: No tenderness, no cyanosis, no clubbing, ROM intact, no edema. [] Neurologic: Alert and oriented X 3, normal motor function, normal sensory function, no focal deficits noted. [] Psychologic: Affect normal, judgement normal, mood normal. [] (PHIL GARIBAY APRN) Current Patient Data: Labs: Laboratory Tests Test 01/27/22 14:05 01/27/22 14:22 Urine Collection Type Clean catch Urine Color Yellow Urine Clarity Clear Urine pH 6.5 Urine Specific [place] >=1.030 Urine Protein Neg (NEG-TRACE) Urine Glucose (UA) Neg mg/dL (NEG) Urine Ketones (Stick) Neg mg/dL (NEG) Urine Blood Trace (NEG) Urine Nitrite Neg (NEG) Urine Bilirubin Neg (NEG) Urine Urobilinogen Dipstick 0.2 mg/dL (0.2 mg/dL) Urine Leukocyte Esterase Neg (NEG) Urine RBC Occ /HPF (0-2) Urine WBC 0 /HPF (0-4) Urine Squamous Epithelial Cells Many /LPF Urine Bacteria 0 /HPF (0-FEW) White Blood Count 8.9 x10^3/uL (4.0-11.0) Red Blood Count 4.33 x10^6/uL (3.50-5.40) Hemoglobin 13.7 g/dL (12.0-15.5) Hematocrit 41.6 % (36.0-47.0) Mean Corpuscular Volume 96 fL (79-100) Mean Corpuscular Hemoglobin 32 pg (25-35) Mean Corpuscular Hemoglobin Concent 33 g/dL (31-37) Red Cell Distribution Width 13.1 % (11.5-14.5) Platelet Count 260 x10^3/uL (140-400) Neutrophils (%) (Auto) 51 % (31-73) Lymphocytes (%) (Auto) 37 % (24-48) Monocytes (%) (Auto) 8 % (0-9) Eosinophils (%) (Auto) 5 % (0-3) H Basophils (%) (Auto) 0 % (0-3) Neutrophils # (Auto) 4.5 x10^3uL (1.8-7.7) Lymphocytes # (Auto) 3.2 x10^3/uL (1.0-4.8) Monocytes # (Auto) 0.7 x10^3/uL (0.0-1.1) Eosinophils # (Auto) 0.4 x10^3/uL (0.0-0.7) Basophils # (Auto) 0.0 x10^3/uL (0.0-0.2) Sodium Level 140 mmol/L (136-145) Potassium Level 4.0 mmol/L (3.5-5.1) Chloride Level 107 mmol/L (98-107) Carbon Dioxide Level 25 mmol/L (21-32) Anion Gap 8 (6-14) Blood Urea Nitrogen 13 mg/dL (7-20) Creatinine 1.0 mg/dL (0.6-1.0) Estimated GFR (Cockcroft-Gault) 60.0 BUN/Creatinine Ratio 13 (6-20) Glucose Level 109 mg/dL (70-99) H Calcium Level 8.3 mg/dL (8.5-10.1) L Total Bilirubin 0.1 mg/dL (0.2-1.0) L Aspartate Amino Transferase (AST) 13 U/L (15-37) L Alanine Aminotransferase (ALT) 18 U/L (14-59) Alkaline Phosphatase 55 U/L (46-116) Total Protein 6.3 g/dL (6.4-8.2) L Albumin 3.2 g/dL (3.4-5.0) L Albumin/Globulin Ratio 1.0 (1.0-1.7) Vital Signs: Vital Signs Date Time Temp Pulse Resp B/P (MAP) Pulse Ox O2 Delivery O2 Flow Rate FiO2 01/27/22 17:50 82 20 138/79 (98) 97 Room Air 01/27/22 16:30 80 18 148/86 (106) 98 Room Air 01/27/22 15:58 18 01/27/22 14:00 97.9 115 18 169/105 (126) 100 Room Air Vital Signs Date Time Temp Pulse Resp B/P (MAP) Pulse Ox O2 Delivery O2 Flow Rate FiO2 01/27/22 14:00 97.9 115 18 169/105 (126) 100 Room Air (PHIL GARIBAY STUDENT TEACHER) EKG: EKG: [] (PHIL GARIBAY STUDENT TEACHER) Radiology/Procedures: Radiology/Procedures: REASON: abdominal pain and vaginal bleeding, hx of hysterectomy PROCEDURE: CT ABD PELV W/ IV CONTRST ONLY Exam Date: 01/27/2022 2:[address] ABDOMEN+PELVIS W Indication: Reason: abdominal pain and vaginal bleeding, hx of hysterectomy / Spl. Instructions: omni 300 75ml iv only / History: . TECHNIQUE: CT examination of the abdomen and pelvis was performed following the administration of nonionic intravenous contrast. One or more of the following dose reduction techniques were utilized: *Automated exposure control (AEC) *Adjustment of mA and/or kV according to patient size *Use of iterative reconstruction technique *CT scan done according to ALARA, or ALARA/IMAGE GENTLY COMPARISON: May 04, 2016 FINDINGS: The visualized lung bases are clear. The dome of the liver is partially excluded. There is a duplicated collecting system on the right without hydronephrosis. Status post left nephrectomy. The liver, gallbladder, spleen, pancreas, adrenal glands and right kidney are otherwise normal. Urinary bladder is normal in appearance. There is a 3.2 cm left adnexal cyst. There is no bowel obstruction or inflammation. The appendix is normal. No significant atherosclerotic calcifications are seen. No lymphadenopathy or ascites is seen. Osseous structures are intact. IMPRESSION: No evidence of acute intra-abdominal pathology. Status post left nephrectomy. 3 cm left adnexal cyst. Electronically signed by: Shayna Mccrary MD (01/27/2022 3:27 PM) [facility] DICTATED AND SIGNED BY: SHAYNA MCCRARY MD DATE: 01/27/22 1515 CC: PHIL GARIBAY APRN; BRENDAN LYONS ~MTH0 0 REASON: LOWER ABDOMINAL PAIN; PELVIC PAIN; CT shows LT adnexal Cyst PROCEDURE: US PELVIS W/TV EXAM: ULTRASOUND PELVIS INDICATION: Reason: LOWER ABDOMINAL PAIN; PELVIC PAIN; CT shows LT adnexal Cyst / Spl. Instructions: / History: . COMPARISON: CT same day TECHNIQUE: Transabdominal and transvaginal sonography was performed. FINDINGS: Uterus is absent. Right ovary not visualized. Left ovary measures 4.3 x 3.4 x 3.2 cm. There is a simple cyst within the left ovary measuring up to 2.8 cm. Vascular flow identified in the left ovary. No free fluid identified in the pelvis. IMPRESSION: 1. Simple cyst within the left ovary. No evidence for torsion. 2. Right ovary and uterus are not identified, reportedly surgically absent. [] (PHIL GARIBAY STUDENT TEACHER) Heart Score: C/O Chest Pain: N/A Risk Factors: Risk Factors: DM, Current or recent (<one month) smoker, HTN, HLP, family history of CAD, obesity. Risk Scores: Score 0 - 3: 2.5% MACE over next 6 weeks - Discharge Home Score 4 - 6: 20.3% MACE over next 6 weeks - Admit for Clinical Observation Score 7 - 10: 72.7% MACE over next 6 weeks - Early Invasive Strategies (PHIL GARIBAY APRN) Course & Med Decision Making: Course & Med Decision Making Pertinent Labs and Imaging studies reviewed. 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 Patient was also instructed to follow-up with or establish a primary care physician and she was given a list of resources since she states she has no insurance to evaluate her renal status and she only has 1 kidney. I did discuss that she will need to follow-up with a dentist to have that left upper canine evaluated and treated. Patient was encouraged to call dental clinic starting on Saturday to have that evaluated as well. Patient will be given antibiotics for her dental pain she will also be given some limited amount of pain medications for her abdominal pain until she is followed up by her primary care physician or clinic that she will establish care with. Patient verbalized understanding and the need for follow-up and is agreeable to the plan of care. (PHIL GARIBAY APRN) Dragon Disclaimer: Dragon Disclaimer: This electronic medical record was generated, in whole or in part, using a voice recognition dictation system. (PHIL GARIBAY APRN) Attending Co-Sign The patient was seen and interviewed as well as examined at the bedside. The chart was reviewed. The case was discussed. Agree with the plan of care. (SHIRLEY CROCKETT DO) Departure Departure: Impression: Primary Impression: Dental caries Additional Impression: Abdominal pain Qualified Codes: R10.30 - Lower abdominal pain, unspecified Disposition: HOME / SELF CARE / HOMELESS Condition: STABLE Referrals: BRENDAN LYONS (PCP) Patient Instructions: Abdominal Pain, Dental Caries Additional Instructions: Augmentin 1 tablet twice daily for 10 full days this is for your dental caries Tramadol take 1 tablet every 6 hours as needed for severe pain Tylenol and/or ibuprofen as needed for mild to moderate pain Follow-up with one of the clinics listed on the brochure that you were given for further evaluation of your DIRECTOR DIVERSITY concerns of abdominal pain you have been given copies of your exams while here in the emergency department to give to the physicians for follow-up Follow-up with the dental clinic as soon as possible for further management of your dental caries. Scripts Tramadol Hcl (TRAMADOL HCL) 50 Mg Tablet 50 MG PO PRN Q6HRS PRN for PAIN, #14 TAB Prov: PHIL GARIBAY APRN 01/27/22 Amoxicillin/Potassium Clav (AMOX TR-K CLV 875-125 MG TAB) 1 Each Tablet 1 TAB PO BID for dental caries, #20 TAB Prov: PHIL GARIBAY STUDENT TEACHER 01/27/22 PHIL GARIBAY APRN Jan 27, 2022 15:35 SHIRLEY CROCKETT DO Jan 29, 2022 11:05
--- NOTE | 2022-01-27 17:41 | RAD ---
EXAM: ULTRASOUND PELVIS INDICATION: Reason: LOWER ABDOMINAL PAIN; PELVIC PAIN; CT shows LT adnexal Cyst / Spl. Instructions: / History: . COMPARISON: CT same day TECHNIQUE: Transabdominal and transvaginal sonography was performed. FINDINGS: Uterus is absent. Right ovary not visualized. Left ovary measures 4.3 x 3.4 x 3.2 cm. There is a simple cyst within the left ovary measuring up to 2.8 cm. Vascular flow identified in the left ovary. No free fluid identified in the pelvis. IMPRESSION: 1. Simple cyst within the left ovary. No evidence for torsion. 2. Right ovary and uterus are not identified, reportedly surgically absent. Electronically signed by: Eliezer Hart MD (01/27/2022 5:38 PM) [facility]
[2022-01-27 17:50] VITALS: BP 138/79
[2022-01-27] MEDS ORDERED: TRAM50TA PO (17:57)
[2022-01-27] MEDS ORDERED: AMOX1TAB11 PO (17:57)
== END 2022-01-27 18:04 | disposition home or self-care (01) ==
LOC: ER 13:57
DX: K02.9 Dental caries, unspecified (principal); R10.30 Lower abdominal pain, unspecified; R30.9 Painful micturition, unspecified; F41.9 Anxiety disorder, unspecified; F31.9 Bipolar disorder, unspecified; F17.210 Nicotine dependence, cigarettes, uncomplicated
CPT/HCPCS: 36415; 74177; 76830; 76856; 80053; 81001; 85025; 96361; 96374; 96375; 99285; J1885; J2405; J3010; J7030; Q9967